=== PATIENT | female | born 1955 | race Asian ===

== ENCOUNTER 2017-10-23 22:54 | Inpatient (IN) | payer MEDICAID ==
[~2017-10-23] VITALS: Ht 165.1 cm; Wt 67.1 kg
[2017-10-23 23:19] LABS: APPEARANCE,URINE CLEAR; BILIRUBIN, URINE NEGATIVE (NEGATIVE); COLOR,URINE PALE YELLOW; GLUCOSE, URINE (UA) NEGATIVE (NEGATIVE); KETONES,URINE NEGATIVE (NEGATIVE); LEUKOCYTE ESTERASE ,URINE NEGATIVE (NEGATIVE); NITRITE,URINE NEGATIVE (NEGATIVE); PH,URINE 8 (4.5-8.0); PROTEIN,URINE NEGATIVE (NEGATIVE); UROBILINOGEN,URINE NORMAL MG/DL (0.0-1.0)
[2017-10-23 23:22] LABS: BASOPHILS % (AUTO) 1.6 % (0.0-2.0); HEMATOCRIT 45.7 % (37.0-47.0); HEMOGLOBIN 15.4 G/DL (12.0-16.0); LYMPHOCYTES % (AUTO) 48.3 % (20.0-45.0); MEAN CORPUSCULAR VOLUME 89 FL (80-99); MONOCYTES % (AUTO) 7.9 % (1.0-10.0); NEUTROPHILS % (AUTO) 40.2 % (45.0-75.0); PLATELET COUNT 300 K/UL (150-450); RED BLOOD COUNT 5.11 M/UL (4.20-5.40); RED CELL DISTRIBUTION WIDTH 10.6 % (11.6-14.8); WHITE BLOOD COUNT 7.2 K/UL (4.8-10.8)
[2017-10-23 23:27] LABS: ANION GAP 8 mmol/L (5-15); BLOOD UREA NITROGEN 19 mg/dL (7-18); CALCIUM 9.5 MG/DL (8.5-10.1); CARBON DIOXIDE 28 MMOL/L (21-32); CHLORIDE 105 MMOL/L (98-107); CREATININE 0.7 MG/DL (0.55-1.30); POTASSIUM 3.8 MMOL/L (3.5-5.1); SODIUM 141 MMOL/L (136-145)
[2017-10-24] VITALS (9 sets, daily range): BP systolic 105–175; BP diastolic 37–65
--- NOTE | 2017-10-24 00:05 | Emergency Room Report ---
History of Present Illness General Chief Complaint: Hypertension Source: Patient Present Illness HPI Is a 62-year-old [place] female with history of high blood pressure. She presents with chief complaint of high blood pressure and dizziness. She complained at the ceiling is spinning. Blood pressure at home was also elevated with systolic in the 200. She also has nausea vomiting. No fever or chills. No diarrhea. No abdominal pain. No hematuria. No chest pain. She did have an upper respiratory infection about 2 weeks ago. Allergies: Coded Allergies: No Known Allergies (Unverified , 10/23/17) Patient History Past Medical History: see triage record, old chart reviewed, HTN Past Surgical History: other Pertinent Family History: none Social History: Denies: smoking Last Menstrual Period: NA Now: No Immunizations: other Reviewed Nursing Documentation: PMH: Agreed, PSxH: Agreed Nursing Documentation-PMH Hx Hypertension: Yes Hx Diabetes: Yes Review of Systems Eye: Denies: eye pain, blurred vision ENT: Denies: ear pain, nose congestion, throat swelling Respiratory: Denies: cough, shortness of breath Cardiovascular: Denies: chest pain, palpitations Gastrointestinal: Denies: abdominal pain, diarrhea, nausea, vomiting Musculoskeletal: Denies: back pain, joint pain Skin: Denies: rash Neurological: Reports: dizziness, Denies: headache, numbness Endocrine: Denies: increased thirst, increased urine Hematologic/Lymphatic: Denies: easy bruising All Other Systems: negative except mentioned in HPI Physical Exam Vital Signs Date Time Temp Pulse Resp B/P (MAP) Pulse Ox O2 Delivery O2 Flow Rate FiO2 10/23/17 22:18 98.1 90 18 210/84 98 Room Air 98.1 vitals were high blood pressure Sp02 EP Interpretation: reviewed, normal General Appearance: well appearing, no apparent distress, alert Head: normocephalic, atraumatic Eyes: bilateral eye PERRL, bilateral eye EOMI ENT: hearing grossly normal, normal pharynx Neck: full range of motion, supple, no meningismus Respiratory: chest non-tender, lungs clear, normal breath sounds Cardiovascular #1: regular rate, rhythm, no murmur Gastrointestinal: normal bowel sounds, non tender, no mass, no organomegaly, no bruit, non-distended Musculoskeletal: back normal, gait/station normal, normal range of motion Psychiatric: mood/affect normal Skin: warm/dry Medical Decision Making Diagnostic Impression: Primary Impression: Hypertension Qualified Codes: I10 - Essential (primary) hypertension Additional Impressions: Palpitations Dizziness ACS (acute coronary syndrome) ER Course Patient presents with dizziness, vomiting, palpitation. Troponin is intermediate. This may be an atypical presentation of ACS. Patient denies any chest pain. Symptom improved. Will admit versus transfer for further workup. Pt approved for admission here under Dr. Cohen Lab Results Impression labs with intermediate trop EKG Diagnostic Results Rate: normal Rhythm: NSR ST Segments: no acute changes ASA given to the pt in ED: Yes Rhythm Strip Diag. Results Rhythm Strip Time: 02:50 EP Interpretation: yes Rate: 100 Rhythm: NSR, no PVC's, no ectopy Chest X-Ray Diagnostic Results Chest X-Ray Diagnostic Results : Chest X-Ray Ordered: Yes Indication: Chest Pain EP Interpretation: Yes Interpretation: no consolidation, no effusion, no pneumothorax, no acute cardiopulmonary disease Impression: No acute disease Electronically Signed by: Joe Barnes MD CT/MRI/US Diagnostic Results CT/MRI/US Diagnostic Results : Imaging Test Ordered: Ct head Impression CT head read by radiologist. Neg Last Vital Signs Date Time Temp Pulse Resp B/P (MAP) Pulse Ox O2 Delivery O2 Flow Rate FiO2 10/23/17 23:47 166/84 10/23/17 22:55 90 18 Room Air 10/23/17 22:18 98.1 98 98.1 Status: improved Disposition: ADMITTED INPATIENT Condition: Serious Scripts Unable to Obtain Active Prescriptions or Reported Meds JOE BARNES M.D. Oct 24, 2017 00:05
[2017-10-24] MEDS ORDERED: LORazepam Inj 2mg/ml 1ml IV ONE (01:00)
[2017-10-24] MEDS ORDERED: Acetaminophen 500mg (ES) tab ORAL ONE (01:45)
[2017-10-24] MEDS ORDERED: Aspirin Baby 81mg ORAL ONE (02:45)
[2017-10-24] MEDS ORDERED: Albuterol/Ipratropium 3ml neb HHN PRN (08:30)
[2017-10-24] MEDS ORDERED: Miralax 17gm pkt ORAL PRN (08:30)
[2017-10-24] MEDS ORDERED: Enalaprilat 2.5mg/2ml Inj IV PRN (08:30)
[2017-10-24] MEDS ORDERED: Ketorolac 30mg Inj IV PRN (08:30)
[2017-10-24] MEDS ORDERED: Nitroglycerin Subl 0.4mg tab SL PRN (08:30)
[2017-10-24] MEDS ORDERED: Morphine Sulfate 2mg/ml Inj IVP PRN (08:30)
[2017-10-24] MEDS ORDERED: dilTIAZem HCl 25mg/5ml Inj IV PRN (08:30)
--- NOTE | 2017-10-24 08:58 | Diagnostic Imaging Report ---
Indication: Shortness of breath Technique: XRAY Chest 1v Comparison: None Findings: Heart size is within normal limits. Atherosclerotic calcifications noted in the thoracic aorta. There is no focal airspace consolidation, pleural effusion or pneumothorax. No acute osseous abnormality. Impression: No radiographic evidence of acute cardiopulmonary disease.
--- NOTE | 2017-10-24 09:01 | Diagnostic Imaging Report ---
Indication: Dizziness Technique: Continuous helical CT scanning of the head was performed utilizing automated exposure control without intravenous contrast material. Axial and coronal reconstructions were obtained. Comparison: None CT dose: Total DLP 1478.13 mGycm; CTDI vol 70.38 mGy Findings: There is no acute intracranial hemorrhage, mass effect or cortical edema. The ventricles, cisterns and sulci are prominent consistent with atrophy. Periventricular hypoattenuation is seen, a nonspecific finding. Atherosclerotic calcifications noted in the cavernous portions of the bilateral internal carotid arteries. Visualized mastoid air cells and paranasal sinuses are unremarkable. No focal lesions of the bony calvarium or soft tissues of the scalp are seen. IMPRESSION: No evidence of acute intracranial hemorrhage, mass effect or cortical edema. MRI may be obtained for more sensitive evaluation as clinically indicated. Atrophy and nonspecific periventricular hypoattenuation suggestive of chronic ischemic microvascular changes. This corresponds with the statrad preliminary report. The CT scanner at [facility] is accredited by the [employer] and the scans are performed using protocols designed to limit radiation exposure to as low as reasonably achievable to attain images of sufficient resolution adequate for diagnostic evaluation.
[2017-10-24] MEDS ORDERED: METOPROLOL SUCC50 MG ORAL (09:51)
[2017-10-24] MEDS ORDERED: PREDNISONE10 MG ORAL (09:51)
[2017-10-24] MEDS ORDERED: CLOPIDOGREL75 MG ORAL (09:51)
[2017-10-24] MEDS ORDERED: SIMVASTATIN20 MG ORAL (09:51)
[2017-10-24] MEDS ORDERED: OMEPRAZOLE40 M1 ORAL (09:51)
[2017-10-24] MEDS: Aspirin Baby 81mg ORAL SCH (10:01)
[2017-10-24] MEDS: Heparin 5000 units/ml inj SUBQ SCH ×2 (10:03→22:18)
--- NOTE | 2017-10-24 12:41 | History and Physical ---
History of Present Illness General Date patient seen: Oct 24, 2017 Reason for Hospitalization: Hypertension Present Illness HPI 62-year-old [place] female with history of high blood pressure presented to ER with chief complaint of high blood pressure and dizziness. She complained that the ceiling is spinning. Blood pressure at home was also elevated with systolic in the 200. She also has nausea vomiting. No fever or chills. No diarrhea. No abdominal pain. No hematuria. No chest pain. She is admitted to telemetry for hypertensive emergency. Allergies: Coded Allergies: No Known Allergies (Unverified , 10/23/17) Medication History Scheduled Clopidogrel* (Clopidogrel*), 75 MG ORAL DAILY, (Reported) Metoprolol Succinate* (Metoprolol Succinate*), 50 MG ORAL DAILY, (Reported) Omeprazole (Omeprazole), 40 MG ORAL DAILY, (Reported) Prednisone* (Prednisone*), 10 MG ORAL DAILY, (Reported) Simvastatin (Zocor), 20 MG ORAL BEDTIME, (Reported) Patient History Healthcare decision maker Resuscitation status Full Code Advanced Directive on File No Past Medical/Surgical History Past Medical/Surgical History: (1) Hypertension Review of Systems All Other Systems: negative except mentioned in HPI Physical Exam General Appearance: WD/WN Lines, tubes and drains: peripheral HEENT: normocephalic, atraumatic Neck: non-tender, normal alignment Respiratory/Chest: chest wall non-tender, lungs clear Breasts: no masses Cardiovascular/Chest: normal peripheral pulses Abdomen: normal bowel sounds, non tender Genitourinary/Rectal: normal genital exam Skin Exam: normal pigmentation Neurologic: no motor/sensory deficits Last 24 Hour Vital Signs Date Time Temp Pulse Resp B/P (MAP) Pulse Ox O2 Delivery O2 Flow Rate FiO2 10/24/17 12:00 97.3 84 20 127/64 97 Room Air 97.3 10/24/17 08:00 98.0 85 18 105/60 97 Room Air 98.0 10/24/17 06:00 96.1 91 18 120/58 96 Room Air 96.1 10/24/17 05:46 87 10/24/17 05:10 97.9 93 18 114/56 97 Room Air 97.9 10/24/17 04:28 97.9 93 18 114/56 97 Room Air 97.9 10/24/17 02:59 104 19 136/53 97 Room Air 10/24/17 02:46 97.9 10/24/17 01:47 97.9 10/24/17 01:17 111 20 146/37 96 Room Air 10/24/17 00:38 155/53 10/24/17 00:04 97.9 102 18 175/63 99 Room Air 97.9 10/23/17 23:47 166/84 10/23/17 22:55 90 18 Room Air 10/23/17 22:18 98.1 90 18 210/84 98 Room Air 98.1 Intake and Output 10/23/17 10/24/17 19:00 07:00 Intake Total 2000 ml Balance 2000 ml Intake IV Total 2000 ml # Voids 4 Laboratory Tests Test 10/23/17 23:00 10/23/17 23:10 10/24/17 10:30 White Blood Count 7.2 K/UL (4.8-10.8) Red Blood Count 5.11 M/UL (4.20-5.40) Hemoglobin 15.4 G/DL (12.0-16.0) Hematocrit 45.7 % (37.0-47.0) Mean Corpuscular Volume 89 FL (80-99) Mean Corpuscular Hemoglobin 30.1 PG (27.0-31.0) Mean Corpuscular Hemoglobin Concent 33.7 G/DL (32.0-36.0) Red Cell Distribution Width 10.6 % (11.6-14.8) L Platelet Count 300 K/UL (150-450) Mean Platelet Volume 7.5 FL (6.5-10.1) Neutrophils (%) (Auto) 40.2 % (45.0-75.0) L Lymphocytes (%) (Auto) 48.3 % (20.0-45.0) H Monocytes (%) (Auto) 7.9 % (1.0-10.0) Eosinophils (%) (Auto) 2.0 % (0.0-3.0) Basophils (%) (Auto) 1.6 % (0.0-2.0) Sodium Level 141 MMOL/L (136-145) Potassium Level 3.8 MMOL/L (3.5-5.1) Chloride Level 105 MMOL/L (98-107) Carbon Dioxide Level 28 MMOL/L (21-32) Anion Gap 8 mmol/L (5-15) Blood Urea Nitrogen 19 mg/dL (7-18) H Creatinine 0.7 MG/DL (0.55-1.30) Estimat Glomerular Filtration Rate > 60 mL/min (>60) Glucose Level 112 MG/DL (74-106) H Calcium Level 9.5 MG/DL (8.5-10.1) Troponin I 0.044 ng/mL (0.000-0.056) 0.077 ng/mL (0.000-0.056) Urine Color Pale yellow Urine Appearance Clear Urine pH 8 (4.5-8.0) Urine Specific [place] 1.015 (1.005-1.035) Urine Protein Negative (NEGATIVE) Urine Glucose (UA) Negative (NEGATIVE) Urine Ketones Negative (NEGATIVE) Urine Occult Blood Negative (NEGATIVE) Urine Nitrite Negative (NEGATIVE) Urine Bilirubin Negative (NEGATIVE) Urine Urobilinogen Normal MG/DL (0.0-1.0) Urine Leukocyte Esterase Negative (NEGATIVE) Urine RBC 0-2 /HPF (0 - 2) Urine WBC 0-2 /HPF (0 - 2) Urine Squamous Epithelial Cells Occasional /LPF Urine Bacteria Occasional /HPF (NONE) Height (Feet): 5 Height (Inches): 5.00 Weight (Pounds): 148 Medications Current Medications Medications (Trade) Dose Ordered Sig/Jaydon Route PRN Reason Start Time Stop Time Status Last Admin Dose Admin Acetaminophen (Tylenol) 650 mg Q4H PRN ORAL FEVER (temp>100.5F) 10/24/17 08:30 11/23/17 08:29 Albuterol/ Ipratropium (Albuterol/ Ipratropium) 3 ml Q4H PRN HHN Shortness of Breath 10/24/17 08:30 10/29/17 08:29 Aspirin (ASA) 162 mg DAILY ORAL 10/25/17 09:00 11/24/17 08:59 10/24/17 10:01 Diltiazem HCl (Cardizem) 10 mg Q1H PRN IV heart rate more than 120, 10/24/17 08:30 11/23/17 08:29 Enalaprilat (Vasotec) 2.5 mg Q6H PRN IV sbp more than 160 10/24/17 08:30 11/23/17 08:29 Heparin Sodium (Porcine) (Heparin 5000 units/ml) 5,000 units EVERY 12 HOURS SUBQ 10/24/17 09:00 11/23/17 08:59 10/24/17 10:03 Ketorolac Tromethamine (Toradol 30mg) 30 mg Q6H PRN IV moderate pain ( 4-6) 10/24/17 08:30 10/29/17 08:29 Morphine Sulfate (Morphine Sulfate) 2 mg Q4H PRN IVP severe Pain (Pain Scale 7-10) 10/24/17 08:30 10/31/17 08:29 Nitroglycerin (Ntg) 0.4 mg Q5M PRN SL Prn Chest Pain 10/24/17 08:30 11/23/17 08:29 Ondansetron HCl (Zofran) 4 mg Q6H PRN IVP Nausea & Vomiting 10/24/17 08:30 11/23/17 08:29 Polyethylene Glycol (Miralax) 17 gm DAILYPRN PRN ORAL Constipation 10/24/17 08:30 11/23/17 08:29 10/24/17 12:20 Temazepam (Restoril) 15 mg HSPRN PRN ORAL Insomnia 10/24/17 08:30 10/31/17 08:29 Assessment/Plan Problem List: (1) ACS (acute coronary syndrome) ICD Codes: I24.9 - Acute ischemic heart disease, unspecified SNOMED: 952161562 (2) Hypertensive emergency ICD Codes: I16.1 - Hypertensive emergency SNOMED: 203151230433296 (3) Hypertension ICD Codes: I10 - Essential (primary) hypertension SNOMED: 02600047, [id number] Qualifiers: Qualified Codes: I10 - Essential (primary) hypertension Assessment/Plan serial ekg, troponin echo, monitor BP cardio to see Elysia Antunez MD Oct 24, 2017 12:41
[2017-10-24] MEDS: Pantoprazole Inj IVP SCH (13:41)
--- NOTE | 2017-10-24 14:23 | Cardiology Progress Note ---
Subjective Subjective [id number] Objective Last 24 Hour Vital Signs Date Time Temp Pulse Resp B/P (MAP) Pulse Ox O2 Delivery O2 Flow Rate FiO2 10/24/17 12:00 83 10/24/17 12:00 97.3 84 20 127/64 97 Room Air 97.3 10/24/17 08:00 98.0 85 18 105/60 97 Room Air 98.0 10/24/17 06:00 96.1 91 18 120/58 96 Room Air 96.1 10/24/17 05:46 87 10/24/17 05:10 97.9 93 18 114/56 97 Room Air 97.9 10/24/17 04:28 97.9 93 18 114/56 97 Room Air 97.9 10/24/17 02:59 104 19 136/53 97 Room Air 10/24/17 02:46 97.9 10/24/17 01:47 97.9 10/24/17 01:17 111 20 146/37 96 Room Air 10/24/17 00:38 155/53 10/24/17 00:04 97.9 102 18 175/63 99 Room Air 97.9 10/23/17 23:47 166/84 10/23/17 22:55 90 18 Room Air 10/23/17 22:18 98.1 90 18 210/84 98 Room Air 98.1 Intake and Output 10/23/17 10/24/17 19:00 07:00 Intake Total 2000 ml Balance 2000 ml IV Total 2000 ml # Voids 4 Laboratory Tests Test 10/23/17 23:00 10/23/17 23:10 10/24/17 10:30 White Blood Count 7.2 K/UL (4.8-10.8) Red Blood Count 5.11 M/UL (4.20-5.40) Hemoglobin 15.4 G/DL (12.0-16.0) Hematocrit 45.7 % (37.0-47.0) Mean Corpuscular Volume 89 FL (80-99) Mean Corpuscular Hemoglobin 30.1 PG (27.0-31.0) Mean Corpuscular Hemoglobin Concent 33.7 G/DL (32.0-36.0) Red Cell Distribution Width 10.6 % (11.6-14.8) L Platelet Count 300 K/UL (150-450) Mean Platelet Volume 7.5 FL (6.5-10.1) Neutrophils (%) (Auto) 40.2 % (45.0-75.0) L Lymphocytes (%) (Auto) 48.3 % (20.0-45.0) H Monocytes (%) (Auto) 7.9 % (1.0-10.0) Eosinophils (%) (Auto) 2.0 % (0.0-3.0) Basophils (%) (Auto) 1.6 % (0.0-2.0) Sodium Level 141 MMOL/L (136-145) Potassium Level 3.8 MMOL/L (3.5-5.1) Chloride Level 105 MMOL/L (98-107) Carbon Dioxide Level 28 MMOL/L (21-32) Anion Gap 8 mmol/L (5-15) Blood Urea Nitrogen 19 mg/dL (7-18) H Creatinine 0.7 MG/DL (0.55-1.30) Estimat Glomerular Filtration Rate > 60 mL/min (>60) Glucose Level 112 MG/DL (74-106) H Calcium Level 9.5 MG/DL (8.5-10.1) Troponin I 0.044 ng/mL (0.000-0.056) 0.077 ng/mL (0.000-0.056) Urine Color Pale yellow Urine Appearance Clear Urine pH 8 (4.5-8.0) Urine Specific [place] 1.015 (1.005-1.035) Urine Protein Negative (NEGATIVE) Urine Glucose (UA) Negative (NEGATIVE) Urine Ketones Negative (NEGATIVE) Urine Occult Blood Negative (NEGATIVE) Urine Nitrite Negative (NEGATIVE) Urine Bilirubin Negative (NEGATIVE) Urine Urobilinogen Normal MG/DL (0.0-1.0) Urine Leukocyte Esterase Negative (NEGATIVE) Urine RBC 0-2 /HPF (0 - 2) Urine WBC 0-2 /HPF (0 - 2) Urine Squamous Epithelial Cells Occasional /LPF Urine Bacteria Occasional /HPF (NONE) FARRAH MARTINS 18, 2018 14:23
[2017-10-24] MEDS: Docusate 100mg cap ORAL SCH (18:02)
[2017-10-24] MEDS: Meclizine 25mg tab ORAL SCH (18:02)
[2017-10-24] MEDS: Metoprolol Succinate XL 50mg tab ORAL SCH (18:02)
--- NOTE | 2017-10-24 21:15 | Consultation ---
DATE OF CONSULTATION: 10/24/2017 CARDIOLOGY CONSULTATION IDENTIFYING DATA: This is a 62-year-old Tam[place] female. REASON FOR ADMISSION: Dizziness and elevated blood pressure. HISTORY OF PRESENT ILLNESS: Taken from the patient. The patient has history of hypertension and yesterday after dinner about couple hours after dinner she felt very nauseated. She checked her blood pressure, it was 210/100 and felt very nauseated, she laid down and she felt slightly better but not entirely better. She also was having headaches. PAST MEDICAL HISTORY: Significant for as I said hypertension only. She does not have diabetes, does not have coronary artery disease, she has hyperlipidemia. There is no chest pain. No shortness of breath. Now she feels a little better. She has arthritis. PAST SURGICAL HISTORY: Negative. MEDICATIONS: At home include metoprolol, clopidogrel, omeprazole, simvastatin. HABITS: No history of drinking, smoking, drug abuse. SOCIAL HISTORY: Lives at home independent. REVIEW OF SYSTEMS: Review of systems essentially was negative. Cardiac-oliveira review of system was done in detailed and it is negative. PHYSICAL EXAMINATION: GENERAL: Reveals middle-aged female, appears to be not in acute distress. VITAL SIGNS: Blood pressure 120/60, heart rate 90, temperature 96.1, oxygen saturation 96%. HEENT: PERRLA. EOMI. NECK: Supple. Jugular pressure is normal. No carotid bruit. No thyromegaly. LUNGS: Clear to auscultation. HEART: Regular. PMI in the sixth intercostal space in midclavicular line. Accentuated A2. BREASTS: Not done. ABDOMEN: Soft and nontender. No masses. No rebound. No guarding. EXTREMITIES: Lower extremities, no edema. Distal pulses palpable. NEUROLOGIC: Neurologically she appears to be unremarkable. LABORATORY AND DIAGNOSTIC DATA: EKG unremarkable. Labs all reviewed. Troponin 0.44. Glucose 112. Labs are unremarkable. IMPRESSION AND RECOMMENDATION: The patient sounds like she had benign positional vertigo versus orthostatic dizziness, postprandial dizziness with subsequent elevated blood pressure. However I do not see any evidence of acute coronary syndrome. Troponin could be false positive. I would couple of ECGs and maybe she is going to have stress test as outpatient but otherwise no significant recommendations. I added meclizine to her medical regimen. Thank you for the consultation. Lori Dee M.D. DR: Angela JOB#: [id number] CC:
[2017-10-25] VITALS: BP 130/52
[2017-10-25 04:00] VITALS: BP 126/65
[2017-10-25 08:00] VITALS: BP 138/71
[2017-10-25 08:04] LABS: HEMOGLOBIN 13.7 G/DL (12.0-16.0); MEAN CORPUSCULAR VOLUME 91 FL (80-99); PLATELET COUNT 280 K/UL (150-450); RED BLOOD COUNT 4.49 M/UL (4.20-5.40); RED CELL DISTRIBUTION WIDTH 10.8 % (11.6-14.8); WHITE BLOOD COUNT 5.6 K/UL (4.8-10.8)
[2017-10-25 08:53] LABS: CHOLESTEROL 183 MG/DL (< 200); HDL CHOLESTEROL 37 MG/DL (40-60); TRIGLYCERIDES 156 MG/DL (30-150)
[2017-10-25] MEDS: Meclizine 25mg tab ORAL SCH (09:03)
[2017-10-25] MEDS: Docusate 100mg cap ORAL SCH ×2 (09:04→14:00)
[2017-10-25] MEDS: Metoprolol Succinate XL 50mg tab ORAL SCH (09:04)
[2017-10-25] MEDS: Heparin 5000 units/ml inj SUBQ SCH (09:05)
[2017-10-25] MEDS: Pantoprazole Inj IVP SCH (09:05)
[2017-10-25] MEDS: Aspirin Baby 81mg ORAL SCH (09:15)
[2017-10-25 12:00] VITALS: BP 124/61
[2017-10-25] MEDS ORDERED: MECLIZINE HCL25 MG ORAL (12:50)
[2017-10-25] MEDS ORDERED: ASPIRIN81 MG ORAL (12:50)
--- NOTE | 2017-10-25 12:55 | Neurology Progress Note ---
Objective Physical Exam Last Vital Signs Date Time Temp Pulse Resp B/P (MAP) Pulse Ox O2 Delivery O2 Flow Rate FiO2 10/25/17 09:04 75 138/71 10/25/17 08:00 97.9 18 98 Room Air 97.9 10/25/17 07:28 21 Laboratory Tests Test 10/25/17 06:40 White Blood Count 5.6 K/UL (4.8-10.8) Red Blood Count 4.49 M/UL (4.20-5.40) Hemoglobin 13.7 G/DL (12.0-16.0) Hematocrit 41.0 % (37.0-47.0) Mean Corpuscular Volume 91 FL (80-99) Mean Corpuscular Hemoglobin 30.6 PG (27.0-31.0) Mean Corpuscular Hemoglobin Concent 33.5 G/DL (32.0-36.0) Red Cell Distribution Width 10.8 % (11.6-14.8) L Platelet Count 280 K/UL (150-450) Mean Platelet Volume 7.5 FL (6.5-10.1) Neutrophils (%) (Auto) % (45.0-75.0) Lymphocytes (%) (Auto) % (20.0-45.0) Monocytes (%) (Auto) % (1.0-10.0) Eosinophils (%) (Auto) % (0.0-3.0) Basophils (%) (Auto) % (0.0-2.0) Differential Total Cells Counted 100 Neutrophils % (Manual) 35 % (45-75) L Lymphocytes % (Manual) 53 % (20-45) H Monocytes % (Manual) 9 % (1-10) Eosinophils % (Manual) 3 % (0-3) Basophils % (Manual) 0 % (0-2) Band Neutrophils 0 % (0-8) Platelet Estimate Adequate Platelet Morphology Normal Red Blood Cell Morphology Normal Prothrombin Time 10.0 SEC (9.30-11.50) Prothromb Time International Ratio 1.0 (0.9-1.1) Activated Partial Thromboplast Time 27 SEC (23-33) Troponin I 0.099 ng/mL (0.000-0.056) C-Reactive Protein, Quantitative < 0.4 mg/dL (0.00-0.90) Triglycerides Level 156 MG/DL (30-150) H Cholesterol Level 183 MG/DL (< 200) LDL Cholesterol 127 mg/dL (<100) H HDL Cholesterol 37 MG/DL (40-60) L Cholesterol/HDL Ratio 4.9 (3.3-4.4) H Thyroid Stimulating Hormone (TSH) 0.009 uiU/mL (0.358-3.740) Impression/Recommendations Recommendations #[id number] DOLORES JONAS Oct 25, 2017 12:55
--- NOTE | 2017-10-25 18:45 | Consultation ---
DATE OF CONSULTATION: 10/25/2017 NEUROLOGICAL CONSULTATION CONSULTING PHYSICIAN: González Buck M.D. REQUESTING PHYSICIAN: Elysia Antunez M.D. HISTORY OF PRESENT ILLNESS: The patient is a 62-year-old female, seen in neurological consultation to evaluate new onset of vertigo. The patient informed me that on the day of admission, around 7 p.m. she was having dinner feeling fairly well, she took her medication but then she had a very sudden onset of severe vertigo, accompanied by nausea, instability of gait. She went to bed. Her blood pressure went up to around 200 systolic. She continued to have vertigo "spinning sensation" and called paramedics. She was brought to emergency room complaining of nausea and vomiting but there was no other associated symptomatology. No chest pain. No palpitation. Her blood pressure was 210/84. She was afebrile. Stat CT of the brain was obtained, this revealed no acute abnormalities. No midline shift. Chest x-ray, no acute cardiopulmonary disease. EKG normal sinus rhythm, no PVC, no ectopies. Since admission till present, she has a gradual improvement today, no further dizziness. The patient recalled that in the last week or two, she had some flu-like symptoms which resolved. PAST MEDICAL HISTORY: History of history of cardiac arrhythmia x3, angiographies. She has history of hypertension and degenerative joint disease. MEDICATIONS: Treatment prior to admission including Plavix, omeprazole, metoprolol, simvastatin. SOCIAL HISTORY: No alcohol. No drug abuse. The patient lives alone. REVIEW OF SYMPTOMS: A 12-point review of symptom was negative. No chest pain. No palpitations. No respiratory problems. No abdominal pain or discomfort. No urine or bowel incontinence. No headache. Currently no dizziness. FAMILY HISTORY: Noncontributory. PHYSICAL EXAMINATION: GENERAL: A well-developed, well-nourished, pleasant lady, not in acute distress. VITAL SIGNS: Blood pressure 138/86, respirations 18. HEENT: Head is normocephalic. No evidence of trauma. MUSCULOSKELETAL: Unremarkable with no deformities. Peripheral pulses 1+ symmetric. MENTAL STATUS: She is alert and oriented x3 with no evidence of aphasia or apraxia. Cognition is normal. CRANIAL NERVE II: Pupils both responding to light and accommodation. Extraocular movements intact. No nystagmus. CRANIAL NERVE V: Normal corneal responses. CRANIAL NERVE VII: No facial asymmetry. CRANIAL NERVE VIII: Normal hearing. CRANIAL NERVE IX THROUGH XII: Within normal limits. MOTOR EXAMINATION: Normal muscle tone and strength 5/5 in all extremities. No involuntary movement. Deep tendon reflexes 1+ symmetric with downgoing toes on both sides. SENSORY EXAMINATION: Normal to pinprick light touch. GAIT: Stable. IMPRESSION: 1. Acute benign positional paroxysmal vertigo. 2. Hypertension. DISCUSSION: 1. The patient has normal nonfocal neurological examination. Description of event appears typical for a benign positional vertigo. 2. Symptoms spontaneously resolved Currently, she is neurologically stable. For any recurrent dizziness, may use meclizine 12.5 mg t.i.d. as needed. Thank you for allowing me to see this interesting patient in neurological consultation. González Buck M.D. DR: Lena JOB#: [id number] CC:
--- NOTE | 2017-10-26 15:49 | Discharge Summary ---
Discharge Summary Hospital Course Date of Admission Oct 24, 2017 at 03:06 Date of Discharge Oct 25, 2017 at 14:55 Admitting Diagnosis Acure coronary syndrome HPI Winston Harvey is a 62 year old female who was admitted on Oct 24, 2017 at 03:06 for Acute Coornary Syndrome Hospital Course dc summary #[id number] Discharge Condition Upon Discharge: stable Discharge Disposition Patient was discharged to Home Discharge Diagnoses: Discharge Instructions Discharge Instructions Special Instructions I have been assigned to complete a D/C Summary on this account. I was not involved in the patient management Helga Waldrop NP ([place]) Oct 26, 2017 15:49
--- NOTE | 2017-10-26 17:46 | Cardiology Report ---
APPROVED REPORT EXAM: Two-dimensional and M-mode echocardiogram with Doppler and color Doppler. INDICATION Left Ventricular Function M-Mode DIMENSIONS IVSd1.3 (0.7-1.1cm)Left Atrium (MM)3.6 (1.6-4.0cm) LVDd4.3 (3.5-5.6cm)Aortic Root2.8 (2.0-3.7cm) PWd0.9 (0.7-1.1cm)Aortic Cusp Exc.1.7 (1.5-2.0cm) LVDs1.8 (2.5-4.0cm) PWs1.7 cm Normal left ventricular chamber size, systolic function and wall motion. Left ventricular ejection fraction estimated to be 70-75 %. Mild left ventricular hypertrophy. No evidence of pericardial effusion. All other cardiac chamber sizes are within normal limits. Focal aortic valve sclerosis with adequate cusp excursion. Thickened mitral valve leaflets with normal excursion. Mild mitral annulus and aortic root calcification. Normal pulmonic valve structure. Normal tricuspid valve structure. IVC is normal in size with physiological collapse. A color flow and spectral Doppler study was performed and revealed: No aortic insufficiency. Mild mitral regurgitation. Mitral diastolic velocities suggest mild left ventricular diastolic dysfunction (Grade I). Trace tricuspid regurgitation. Tricuspid systolic velocities suggests peak right ventricular systolic pressure of 21 mmHg. Trace pulmonic regurgitation present.
--- NOTE | 2017-10-26 18:42 | Cardiology Report ---
APPROVED REPORT EKG Measurement Heart [id number] FL [id number] Sinus tachycardia Otherwise normal ECG
--- NOTE | 2017-10-27 01:00 | Discharge Summary 2 SIG ---
DATE OF ADMISSION: 10/24/2017 DATE OF DISCHARGE: 10/25/2017 REASON FOR ADMISSION: 62-year-old female with past medical history significant for hypertension, degenerative joint disease, cardiac arrhythmia, angiogram, presented to the emergency department with complaints of elevated blood pressure, dizziness, nausea and vomiting. Upon evaluation, blood pressure was 210/84. Initial troponin was negative. The patient reported feeling of spinning. She also reported palpitations. Laboratory workup revealed stable electrolytes. First troponin negative- 0.044 and second troponin elevated - 0.077. Coagulation profile was stable. No leukocytosis. Stable hemoglobin and hematocrit. Urinalysis, no evidence of UTI. CT of the head revealed no acute intracranial pathology. Chest x-ray revealed no acute cardiopulmonary pathology. EKG revealed normal sinus rhythm. No acute ischemic changes. The patient admitted to telemetry floor with diagnoses of abnormal troponin, hypertensive emergency, dizziness and palpitations. HOSPITAL COURSE: The patient admitted. Neurology and Cardiology consults were requested. According to neurologist, the patient had normal nonfocal neurological exam. The patient's symptoms, which spontaneously resolved pointed to acute benign positional vertigo. At this point, she was neurologically stable. For any recurrent dizziness, she may use meclizine 12.5 mg t.i.d as needed. Director Of Engineering has seen and evaluated the patient. Echocardiogram revealed preserved ejection fraction of 55%, right ventricular systolic pressure of 21 and mild left ventricular hypertrophy. According to retail salesperson, troponin was minimally elevate . Echocardiogram with preserved ejection fraction. There was no evidence of acute coronary syndrome per retail salesperson. She recommended to have a stress test as an outpatient and cleared the patient for discharge. Blood pressure was subsequently controlled with beta-john. The patient started on aspirin. Pain management provided. Bowel regimen instituted. DVT prophylaxis provided. Supplemental oxygen and pulmonary toilet were on board as needed. Bowel regimen instituted. The patient was stable for discharge. Due to the rapid and unexpected improvement in patient's condition, the patient was discharged in one day. FINAL DIAGNOSES: 1. Acute benign positional vertigo. 2. Hypertensive emergency. 3. Hypertension. 4. Abnormal troponin. DISCHARGE MEDICATIONS: See medication reconciliation list. DISCHARGE INSTRUCTIONS: The patient discharged home. Follow up with primary care provider as outpatient and Cardiology for outpatient stress test. Elysia Antunez M.D. I have been assigned to dictate discharge summary on this account and I was not involved in the patient's management. Helga TobinMontefiore Medical Centerboris NLuis Enrique DR: BRIAN JOB#: [id number] CC: MARTY
== END 2017-10-25 14:55 | disposition home or self-care (01) | DRG 199 ==
LOC: EDBD 22:54 → EMR 23:30 → 2E 10-24 03:06 → EDBEDREQ 10-24 03:29
DX: I16.1 Hypertensive emergency (principal); H81.10 Benign paroxysmal vertigo, unspecified ear; M19.90 Unspecified osteoarthritis, unspecified site; R74.8 Abnormal levels of other serum enzymes; Z79.02 Long term (current) use of antithrombotics/antiplatelets
CPT/HCPCS: 36415; 70450; 71045; 80048; 80061; 81001; 82962; 84443; 84484; 85007; 85025; 85610; 85730; 86140; 93005; 93306; 94664; 99285; J2405

== ENCOUNTER 2019-09-02 09:08 | Inpatient (IN) | payer MEDICAID, OTHER ==
[~2019-09-02] VITALS: Ht 165.1 cm; Wt 72.3 kg
[~2019-09-02 09:08] MED LIST: ASPIRIN81 MG ORAL; CLOPIDOGREL75 MG ORAL; MECLIZINE HCL25 MG ORAL; METOPROLOL SUCC50 MG ORAL; OMEPRAZOLE40 M1 ORAL; PREDNISONE10 MG ORAL; SIMVASTATIN20 MG ORAL
[2019-09-02 09:31] VITALS: BP 152/75
--- NOTE | 2019-09-02 09:36 | Emergency Room Report ---
History of Present Illness General Chief Complaint: Abdominal Pain Source: Patient, Medical Record Present Illness HPI Patient is a 64-year-old female presents after increased left-sided lower abdominal pain. Patient had sudden onset of symptoms approximate 11 PM last night. Associated nausea. Subjective fever. Denies any hematuria. She had prior history of polyps to her intestine. No prior abdominal surgeries. Prior history of cardiac ablation. She denies any bloody stools or diarrhea but has had some slight increased looseness of stool. Allergies: Coded Allergies: No Known Allergies (Unverified , 10/23/17) Patient History Past Medical History: see triage record Last Menstrual Period: N/A Now: No : 1 Para: 2 Reviewed Nursing Documentation: PMH: Agreed; PSxH: Agreed Nursing Documentation-PMH Hx Cardiac Problems: Yes - High cholesterol, arrhythmia Hx Hypertension: Yes Hx Diabetes: No Hx Cancer: No Hx Gastrointestinal Problems: Yes - Acid Reflux Hx Neurological Problems: No Review of Systems All Other Systems: negative except mentioned in HPI Physical Exam Vital Signs Date Time Temp Pulse Resp B/P (MAP) Pulse Ox O2 Delivery O2 Flow Rate FiO2 09/02/19 09:15 98.1 74 18 152/75 (100) 97 Room Air Sp02 EP Interpretation: reviewed, normal General Appearance: normal inspection, alert, mild distress Head: atraumatic ENT: normal ENT inspection, hearing grossly normal, normal voice Neck: normal inspection, full range of motion, supple, no bony tend Respiratory: normal inspection, lungs clear, normal breath sounds, no respiratory distress, no retraction, no wheezing Cardiovascular #1: regular rate, rhythm, no edema Gastrointestinal: normal inspection, normal bowel sounds, non tender, soft, no guarding, no hernia Genitourinary: no CVA tenderness Musculoskeletal: normal inspection, back normal, normal range of motion Neurologic: alert, motor strength/tone normal, cloth wire weaver III-XII nml as tested, oriented x3, responsive, speech normal, normal inspection Psychiatric: normal inspection, judgement/insight normal, mood/affect normal Skin: no rash Medical Decision Making Diagnostic Impression: Primary Impression: Abdominal pain Additional Impression: Diverticulitis ER Course Patient presented for left-sided abdominal pain. Differential diagnosis include was not limited to bowel obstruction, kidney stone, diverticulitis, ovarian torsion among others. Because of complexity of patient's case laboratory tests and imaging studies were ordered.CT imaging showed some evidence of left lower abdominal under distention and thickening with possible colitis. Patient is noted to have persistent pain after medications. Dr. Lobo Quesada was contacted for inpatient management due to panel physician Laboratory Tests Test 09/03/19 05:52 09/04/19 04:30 White Blood Count 9.0 K/UL (4.8-10.8) Red Blood Count 4.41 M/UL (4.20-5.40) Hemoglobin 13.8 G/DL (12.0-16.0) Hematocrit 40.1 % (37.0-47.0) Mean Corpuscular Volume 91 FL (80-99) Mean Corpuscular Hemoglobin 31.2 PG (27.0-31.0) H Mean Corpuscular Hemoglobin Concent 34.3 G/DL (32.0-36.0) Red Cell Distribution Width 10.9 % (11.6-14.8) L Platelet Count 296 K/UL (150-450) Mean Platelet Volume 6.5 FL (6.5-10.1) Neutrophils (%) (Auto) 66.8 % (45.0-75.0) Lymphocytes (%) (Auto) 25.4 % (20.0-45.0) Monocytes (%) (Auto) 5.6 % (1.0-10.0) Eosinophils (%) (Auto) 1.2 % (0.0-3.0) Basophils (%) (Auto) 0.9 % (0.0-2.0) Hemoglobin A1c 5.6 % (4.3-6.0) Magnesium Level 2.2 MG/DL (1.8-2.4) Triglycerides Level 208 MG/DL (30-150) H Cholesterol Level 221 MG/DL (< 200) H LDL Cholesterol 137 mg/dL (<100) H HDL Cholesterol 37 MG/DL (40-60) L Cholesterol/HDL Ratio 6.0 (3.3-4.4) H Thyroid Stimulating Hormone (TSH) 2.271 uiU/mL (0.358-3.740) Stool Occult Blood Negative (NEGATIVE) Sodium Level 142 MMOL/L (136-145) Potassium Level 3.4 MMOL/L (3.5-5.1) L Chloride Level 108 MMOL/L (98-107) H Carbon Dioxide Level 26 MMOL/L (21-32) Anion Gap 8 mmol/L (5-15) Blood Urea Nitrogen 10 mg/dL (7-18) Creatinine 0.8 MG/DL (0.55-1.30) Estimate Glomerular Filtration Rate > 60 mL/min (>60) Glucose Level 96 MG/DL (74-106) Calcium Level 8.3 MG/DL (8.5-10.1) L Total Bilirubin 0.5 MG/DL (0.2-1.0) Aspartate Amino Transferase (AST) 25 U/L (15-37) Alanine Aminotransferase (ALT) 35 U/L (12-78) Alkaline Phosphatase 73 U/L (46-116) Total Protein 7.5 G/DL (6.4-8.2) Albumin 3.6 G/DL (3.4-5.0) Globulin 3.9 g/dL Albumin/Globulin Ratio 0.9 (1.0-2.7) L Last Vital Signs Date Time Temp Pulse Resp B/P (MAP) Pulse Ox O2 Delivery O2 Flow Rate FiO2 09/02/19 09:31 74 18 Room Air 09/02/19 09:31 98.1 152/75 97 Status: unchanged Disposition: ADMITTED INPATIENT Condition: Serious Sloan Tucker MD Sep 02, 2019 09:35
[2019-09-02] MEDS ORDERED: Morphine Sulfate 2mg/ml Inj(IV/IM USE ONLY) IVP ONE ×2 (09:45→12:00)
[2019-09-02 10:01] LABS: BASOPHILS % (AUTO) 2.1 % (0.0-2.0); EOSINOPHILS % (AUTO) 1.3 % (0.0-3.0); HEMATOCRIT 46.3 % (37.0-47.0); LYMPHOCYTES % (AUTO) 42.4 % (20.0-45.0); MEAN CORPUSCULAR VOLUME 90 FL (80-99); NEUTROPHILS % (AUTO) 49.2 % (45.0-75.0); PLATELET COUNT 344 K/UL (150-450); RED BLOOD COUNT 5.13 M/UL (4.20-5.40); RED CELL DISTRIBUTION WIDTH 10.6 % (11.6-14.8); WHITE BLOOD COUNT 7.5 K/UL (4.8-10.8)
[2019-09-02 10:05] LABS: APPEARANCE,URINE CLEAR; BILIRUBIN, URINE NEGATIVE (NEGATIVE); COLOR,URINE PALE YELLOW; GLUCOSE, URINE (UA) NEGATIVE (NEGATIVE); KETONES,URINE NEGATIVE (NEGATIVE); LEUKOCYTE ESTERASE ,URINE NEGATIVE (NEGATIVE); NITRITE,URINE NEGATIVE (NEGATIVE); PH,URINE 5 (4.5-8.0); PROTEIN,URINE 1+ (NEGATIVE); UROBILINOGEN,URINE NORMAL MG/DL (0.0-1.0)
[2019-09-02 10:07] LABS: INR 0.9 (0.9-1.1)
[2019-09-02 10:32] LABS: ANION GAP 10 mmol/L (5-15); BLOOD UREA NITROGEN 14 mg/dL (7-18); CALCIUM 9.2 MG/DL (8.5-10.1); CARBON DIOXIDE 26 MMOL/L (21-32); CHLORIDE 106 MMOL/L (98-107); CREATININE 0.7 MG/DL (0.55-1.30); POTASSIUM 4.3 MMOL/L (3.5-5.1); SODIUM 142 MMOL/L (136-145)
--- NOTE | 2019-09-02 10:32 | Diagnostic Imaging Report ---
EXAM: CT Abdomen and Pelvis Without Intravenous Contrast CLINICAL HISTORY: ABD PAIN TECHNIQUE: Axial computed tomography images of the abdomen and pelvis without intravenous contrast. Sagittal and coronal reformatted images were created and reviewed. CTDI is 21.80 mGy and DLP is 1324.40 mGy-cm. One or more of the following dose reduction techniques were used: automated exposure control, adjustment of the mA and/or kV according to patient size, use of iterative reconstruction technique. COMPARISON: No relevant prior studies available. FINDINGS: Lung bases: Incidental note of a 7 mm thin-walled pulmonary cyst in the left lower lobe (series 3 image 6). The lung bases are otherwise clear. ABDOMEN: Liver: Scattered punctate calcified granulomas in the liver, suggesting prior granulomatous disease. Gallbladder and bile ducts: Cholelithiasis with a subcentimeter stone in the gallbladder neck. No gallbladder wall thickening or adjacent inflammatory stranding. No biliary ductal dilatation. Pancreas: Unremarkable. No ductal dilation. Spleen: Unremarkable. No splenomegaly. Adrenals: Unremarkable. No mass. Kidneys and ureters: Unremarkable. No obstructing stones. No hydronephrosis. Stomach and bowel: Mild wall thickening of the descending and sigmoid colon. Remainder of the colon appears unremarkable. No abnormally distended loops of small bowel. GE junction and stomach appear unremarkable. PELVIS: Appendix: The appendix appears normal. Bladder: Unremarkable. No stones. Reproductive: The uterus and ovaries have an unremarkable noncontrast appearance. ABDOMEN and PELVIS: Intraperitoneal space: Unremarkable. No free air. No significant fluid collection. Bones/joints: Mild multilevel degenerative disc space loss and mild marginal endplate osteophytes throughout the visualized spine. No acute fracture. No dislocation. Soft tissues: Unremarkable. Vasculature: Atherosclerosis throughout the abdominal aorta and its proximal branches. No abdominal aortic aneurysm. Lymph nodes: Unremarkable. No enlarged lymph nodes. IMPRESSION: 1. Mild wall thickening of the descending and sigmoid colon. This is most likely related to underdistention although cannot exclude a mild colitis. No adjacent inflammatory changes, free air, or fluid collections. 2. Cholelithiasis with a subcentimeter stone in the gallbladder neck. No gallbladder wall thickening or adjacent inflammatory stranding. No biliary ductal dilatation. 3. Scattered punctate calcified granulomas in the liver, suggesting prior granulomatous disease.
[2019-09-02 10:39] LABS: ALANINE AMINOTRANSFERASE 43 U/L (12-78); ALBUMIN 4.3 G/DL (3.4-5.0); ALKALINE PHOSPHATASE 87 U/L (46-116); ASPARTATE AMINO TRANSFERASE 24 U/L (15-37); BILIRUBIN,TOTAL 0.4 MG/DL (0.2-1.0)
[2019-09-02] MEDS ORDERED: Ketorolac 30mg Inj IV ONE (11:15)
[2019-09-02] MEDS ORDERED: NORCO 5-325 TA1 EACH ORAL (11:43)
[2019-09-02] MEDS ORDERED: LEVOFLOXACIN500 MG ORAL (11:43)
[2019-09-02] MEDS ORDERED: FLAGYL500 MG ORAL (11:43)
[2019-09-02] MEDS ORDERED: AMLODIPINE BESYL5 MG ORAL (13:38)
[2019-09-02] MEDS ORDERED: Morphine Sulfate 4mg/ml Inj (IV USE ONLY) IVP PRN (17:30)
[2019-09-02] MEDS ORDERED: Piperacillin/Tazobactam 2.25 GM in D5W 55 ML IVPB SCH (17:30)
[2019-09-02] MEDS ORDERED: Milk of Magnesia 30ml Ud ORAL PRN (17:30)
[2019-09-02] MEDS ORDERED: Morphine Sulfate 2mg/ml Inj(IV/IM USE ONLY) IVP PRN (17:30)
--- NOTE | 2019-09-02 17:35 | History & Physical ---
History and Physical History & Physicial HP dictated # [id number] Lobo Quesada MD Sep 02, 2019 17:35
[2019-09-02] MEDS: Metoprolol Succinate XL 50mg tab ORAL SCH (18:28)
[2019-09-02] MEDS: D5 1/2NS 1,000 ML IV SCH (19:16)
[2019-09-02 20:00] VITALS: BP 135/66
[2019-09-02] MEDS: Zoysn 3.37gm in NS 100ML IVPB SCH (20:37)
--- NOTE | 2019-09-02 20:45 | History and Physical Report ---
DATE OF ADMISSION: 09/02/2019 CHIEF COMPLAINT: Abdominal pain. HISTORY OF PRESENT ILLNESS: The patient is a 64-year-old [place] female, who started having left lower quadrant abdominal pain about 11 p.m. last night. There was no associated nausea, vomiting; the patient's pain continued basically constantly. She came to the emergency room and CT scan showed gallstones as well as possible colitis and she was admitted for further care. PAST MEDICAL HISTORY: History of hypertension, hyperlipidemia, gastroesophageal reflux disease. MEDICATIONS: Reviewed in EMR. SOCIAL HISTORY: The patient lives by herself. No history of smoking or alcohol abuse. ALLERGIES: No known drug allergies. REVIEW OF SYSTEMS: As above. PHYSICAL EXAMINATION: GENERAL: The patient is a 64-year-old female, in no acute distress. VITAL SIGNS: Blood pressure 132/75, pulse 74, respirations 18, and temperature 98.1. HEENT: [place] conjunctivae. Anicteric sclerae. NECK: Supple. LUNGS: Clear to auscultation . HEART: S1 and S2 without murmurs or rubs. ABDOMEN: Soft. Left lower quadrant abdominal tenderness. EXTREMITIES: No cyanosis or edema. LABORATORY FINDINGS: CBC shows WBC of 7500, hematocrit 46, hemoglobin 16.0, platelet is 344,000. Chemistry panel shows a sodium of 142, potassium 4.3, chloride 106, CO2 26, BUN 14, creatinine 0.7, blood sugar is 117, calcium is 9.2. UA shows 20 to 30 rbc's per high-power field, 1+ protein. CT scan of abdomen and pelvis showed mild wall thickening of descending and sigmoid colon. This is mostly related to under distention although I cannot exclude a mild colitis, no adjacent inflammatory changes, free air or fluid collections. There is cholelithiasis with subcentimeter stone in the gallbladder neck, no gallbladder wall thickening or adjacent inflammatory stranding. No biliary ductal dilatation. Finally, there is a scattered punctate calcified granulomas in the liver suggesting prior granulomatous disease. ASSESSMENT: This is a 64-year-old [place] female, who was admitted with left lower abdominal pain. She has gallstones which does not correlate with the area of pain. There is also possibility of colitis. The patient has had constant pain. Diverticulitis needs to be ruled out. PLAN: The patient will be on IV antibiotics, IV fluids, NPO. GI consultation will be obtained as well as surgical consultation. The pain medication was prescribed. Labs will be followed. Further adjustment will be made in the patient's regimen. Lobo Quesada M.D. DR: Elvia JOB#: [id number] CC:
[2019-09-03] VITALS: BP 135/66
[2019-09-03 03:58] VITALS: BP 128/69
[2019-09-03] MEDS: D5 1/2NS 1,000 ML IV SCH ×2 (04:24→12:22)
[2019-09-03] MEDS: Zoysn 3.37gm in NS 100ML IVPB SCH ×4 (04:32→20:05)
--- NOTE | 2019-09-03 07:56 | General Progress Note ---
Assessment/Plan Assessment/Plan: abd pain gallstones ? lest sided colitis h/o Diverticulosis abd us repeat labs stool studies may need colonoscopy stool OB will fu Subjective ROS Limited/Unobtainable: Yes Allergies: Coded Allergies: No Known Allergies (Unverified , 10/23/17) Objective Last 24 Hour Vital Signs Date Time Temp Pulse Resp B/P (MAP) Pulse Ox O2 Delivery O2 Flow Rate FiO2 09/03/19 04:00 57 09/03/19 03:58 97.5 57 128/69 (88) 09/03/19 00:00 98.0 52 135/66 (89) 09/02/19 23:59 57 09/02/19 21:00 Room Air 09/02/19 20:00 53 09/02/19 20:00 98.0 57 135/66 (89) 09/02/19 18:28 65 140/75 09/02/19 18:28 65 140/75 09/02/19 17:36 Room Air 09/02/19 14:55 97.9 81 18 144/79 97 Room Air 09/02/19 12:58 98.1 09/02/19 11:45 98.1 09/02/19 10:20 98.1 09/02/19 09:31 74 18 Room Air 09/02/19 09:31 98.1 78 18 152/75 97 Room Air 09/02/19 09:15 98.1 74 18 152/75 (100) 97 Room Air Intake and Output 09/02/19 09/03/19 19:00 07:00 Intake Total 500 ml Balance 500 ml Intake IV Total 500 ml # Voids 1 2 # Bowel Movements 1 1 Laboratory Tests 09/02/19 09:30: Urine Color Pale yellow, Urine Appearance Clear, Urine pH 5, Urine Specific [place] 1.015, Urine Protein 1+H, Urine Glucose (UA) Negative, Urine Ketones Negative, Urine Blood 5+H, Urine Nitrite Negative, Urine Bilirubin Negative, Urine Urobilinogen Normal, Urine Leukocyte Esterase Negative, Urine RBC 20-30H, Urine WBC 0-2, Urine Squamous Epithelial Cells Occasional, Urine Bacteria Occasional 09/02/19 09:50: White Blood Count 7.5, Red Blood Count 5.13, Hemoglobin 16.0, Hematocrit 46.3, Mean Corpuscular Volume 90, Mean Corpuscular Hemoglobin 31.1H, Mean Corpuscular Hemoglobin Concent 34.5, Red Cell Distribution Width 10.6L, Platelet Count 344, Mean Platelet Volume 6.7, Neutrophils (%) (Auto) 49.2, Lymphocytes (%) (Auto) 42.4, Monocytes (%) (Auto) 5.0, Eosinophils (%) (Auto) 1.3, Basophils (%) (Auto ) 2.1H, Prothrombin Time 9.8, Prothromb Time International Ratio 0.9, Activated Partial Thromboplast Time 27, Sodium Level 142, Potassium Level 4.3, Chloride Level 106, Carbon Dioxide Level 26, Anion Gap 10, Blood Urea Nitrogen 14, Creatinine 0.7, Estimat Glomerular Filtration Rate > 60, Glucose Level 117H, Calcium Level 9.2, Total Bilirubin 0.4, Aspartate Amino Transf (AST/SGOT) 24, Alanine Aminotransferase (ALT/SGPT) 43, Alkaline Phosphatase 87, Troponin I 0.023, Total Protein 8.4H, Albumin 4.3, Globulin 4.1, Albumin/Globulin Ratio 1.0 , Lipase 130 Height (Feet): 5 Height (Inches): 6.00 Weight (Pounds): 160 General Appearance: lethargic EENT: normal ENT inspection Neck: supple Cardiovascular: normal peripheral pulses Respiratory/Chest: lungs clear Abdomen: normal bowel sounds, non tender, soft Extremities: non-tender Milton Hassan MD Sep 03, 2019 07:56
[2019-09-03 08:31] VITALS: BP 144/60
[2019-09-03 08:35] LABS: BASOPHILS % (AUTO) 0.9 % (0.0-2.0); EOSINOPHILS % (AUTO) 1.2 % (0.0-3.0); HEMATOCRIT 40.1 % (37.0-47.0); HEMOGLOBIN 13.8 G/DL (12.0-16.0); LYMPHOCYTES % (AUTO) 25.4 % (20.0-45.0); MEAN CORPUSCULAR VOLUME 91 FL (80-99); MONOCYTES % (AUTO) 5.6 % (1.0-10.0); NEUTROPHILS % (AUTO) 66.8 % (45.0-75.0); PLATELET COUNT 296 K/UL (150-450); RED BLOOD COUNT 4.41 M/UL (4.20-5.40); RED CELL DISTRIBUTION WIDTH 10.9 % (11.6-14.8)
[2019-09-03 09:10] LABS: CHOLESTEROL 221 MG/DL (< 200); HDL CHOLESTEROL 37 MG/DL (40-60); TRIGLYCERIDES 208 MG/DL (30-150)
[2019-09-03] MEDS: Pantoprazole Inj IV SCH (09:31)
[2019-09-03] MEDS: Metoprolol Succinate XL 50mg tab ORAL SCH (09:31)
--- NOTE | 2019-09-03 11:21 | Consultation ---
History of Present Illness General Date patient seen: Sep 03, 2019 Reason for Hospitalization: Abdominal Pain Present Illness HPI This is a very pleasant 64-year-old female who presents after increased left- sided lower abdominal pain to the emergency room at [facility]. Patient had sudden onset of symptoms approximate 11 PM night prior to admission. Associated nausea. Subjective fever. Denies any hematuria. She had prior history of polyps to her intestine. No prior abdominal surgeries. Prior history of cardiac ablation. She denies any bloody stools or diarrhea but has had some slight increased looseness of stool. CT with gallstone and colitis surgery called to evaluate and assist with care patient seen, patient Paul, chart reviewed. Patient states pain is better. No nausea vomiting fever chills currently. Labs reviewed. Allergies: Coded Allergies: No Known Allergies (Unverified , 10/23/17) Medication History Scheduled Amlodipine Besylate* (Amlodipine Besylate*), 5 MG ORAL DAILY, (Reported) Metoprolol Succinate* (Metoprolol Succinate*), 50 MG ORAL DAILY, (Reported) Omeprazole (Omeprazole), 40 MG ORAL DAILY, (Reported) Simvastatin (Zocor), 20 MG ORAL BEDTIME, (Reported) Discontinued Medications Aspirin* (Aspirin*), 162 MG ORAL DAILY Discontinued Reason: MD discontinued med Clopidogrel* (Clopidogrel*), 75 MG ORAL DAILY, (Reported) Discontinued Reason: MD discontinued med Hydrocodone Bit/Acetaminophen 5-325* ([place] 5-325*), 1 TAB ORAL Q6H PRN for For Pain Discontinued Reason: Pt stopped taking med Levofloxacin (Levofloxacin*), 500 MG ORAL DAILY Discontinued Reason: Pt stopped taking med Meclizine Hcl* (Meclizine*), 25 MG ORAL BID Discontinued Reason: Pt stopped taking med Metronidazole* (Flagyl*), 500 MG ORAL THREE TIMES A DAY Discontinued Reason: Pt stopped taking med Prednisone* (Prednisone*), 10 MG ORAL DAILY, (Reported) Discontinued Reason: Pt stopped taking med Patient History History Provided By: Patient, Medical Record, PMD Healthcare decision maker Resuscitation status Full Code Advanced Directive on File Past Medical/Surgical History Past Medical/Surgical History: (1) Hypertensive emergency (2) Diverticulitis (3) Abdominal pain Review of Systems Review of Symptoms General ROS: no weight loss or fever Psychological ROS: no depression or mood changes, no memory loss Ophthalmic ROS: no visual changes or eye irritation ENT ROS: no nasal congestion, hearing loss, dizziness Allergy and Immunology ROS: no allergic symptoms or urticaria Hematological and Lymphatic ROS: no swollen glands, unusual bleeding or bruising Endocrine ROS: no polyuria, polydipsia, weight changes, temperature intolerance Respiratory ROS: no cough, shortness of breath, or wheezing Cardiovascular ROS: no chest pain or dyspnea on exertion Gastrointestinal ROS: abdominal pain, bright red blood in stool. Musculoskeletal ROS: no myalgias or arthralgias Neurological ROS: no TIA or stroke symptoms Dermatological ROS: no new or changing skin lesions, rashes or pruritis Physical Exam Physical Exam General appearance: alert, cooperative, no distress, appears stated age Head: Normocephalic, without obvious abnormality, atraumatic Eyes: conjunctivae/corneas clear. PERRL, EOM's intact. Fundi benign Throat: Lips, mucosa, and tongue normal. Teeth and gums normal Neck: supple, symmetrical, trachea midline, no adenopathy, thyroid: not enlarged, symmetric, no tenderness/mass/nodules, no carotid bruit and no JVD Lungs: clear to auscultation bilaterally Heart: regular rate and rhythm, S1, S2 normal, no murmur, click, rub or gallop Abdomen: soft, mild LLQ-tender. Bowel sounds normal. No masses, no organomegaly Extremities: extremities normal, atraumatic, no cyanosis or edema Pulses: 2+ and symmetric Skin: Skin color, texture, turgor normal. No rashes or lesions Neurologic: Grossly normal Last 24 Hour Vital Signs Date Time Temp Pulse Resp B/P (MAP) Pulse Ox O2 Delivery O2 Flow Rate FiO2 09/03/19 09:31 60 144/60 09/03/19 09:31 60 144/60 09/03/19 08:35 Room Air 09/03/19 08:31 97.7 60 16 144/60 (88) 98 09/03/19 04:00 57 09/03/19 03:58 97.5 57 128/69 (88) 09/03/19 00:00 98.0 52 135/66 (89) 09/02/19 23:59 57 09/02/19 21:00 Room Air 09/02/19 20:00 53 09/02/19 20:00 98.0 57 135/66 (89) 09/02/19 18:28 65 140/75 1/25/20 18:28 65 140/75 09/02/19 17:36 Room Air 09/02/19 14:55 97.9 81 18 144/79 97 Room Air 09/02/19 12:58 98.1 09/02/19 11:45 98.1 Intake and Output 09/02/19 09/03/19 18:59 06:59 Intake Total 500 ml Balance 500 ml Intake IV Total 500 ml # Voids 1 2 # Bowel Movements 1 1 Laboratory Tests Test 09/03/19 05:52 White Blood Count 9.0 K/UL (4.8-10.8) Red Blood Count 4.41 M/UL (4.20-5.40) Hemoglobin 13.8 G/DL (12.0-16.0) Hematocrit 40.1 % (37.0-47.0) Mean Corpuscular Volume 91 FL (80-99) Mean Corpuscular Hemoglobin 31.2 PG (27.0-31.0) H Mean Corpuscular Hemoglobin Concent 34.3 G/DL (32.0-36.0) Red Cell Distribution Width 10.9 % (11.6-14.8) L Platelet Count 296 K/UL (150-450) Mean Platelet Volume 6.5 FL (6.5-10.1) Neutrophils (%) (Auto) 66.8 % (45.0-75.0) Lymphocytes (%) (Auto) 25.4 % (20.0-45.0) Monocytes (%) (Auto) 5.6 % (1.0-10.0) Eosinophils (%) (Auto) 1.2 % (0.0-3.0) Basophils (%) (Auto) 0.9 % (0.0-2.0) Hemoglobin A1c 5.6 % (4.3-6.0) Magnesium Level 2.2 MG/DL (1.8-2.4) Triglycerides Level 208 MG/DL (30-150) H Cholesterol Level 221 MG/DL (< 200) H LDL Cholesterol 137 mg/dL (<100) H HDL Cholesterol 37 MG/DL (40-60) L Cholesterol/HDL Ratio 6.0 (3.3-4.4) H Thyroid Stimulating Hormone (TSH) 2.271 uiU/mL (0.358-3.740) Height (Feet): 5 Height (Inches): 6.00 Weight (Pounds): 160 Medications Current Medications Medications (Trade) Dose Ordered Sig/Jaydon Route PRN Reason Start Time Stop Time Status Last Admin Dose Admin Acetaminophen (Tylenol) 650 mg Q4H PRN ORAL Mild Pain (Pain Scale 1-3) 09/02/19 17:30 10/02/19 17:29 09/02/19 18:29 Amlodipine Besylate (Norvasc) 5 mg DAILY ORAL 09/02/19 17:30 10/02/19 17:29 09/03/19 09:31 Dextrose (Dextrose 50%) 25 ml Q30M PRN IV Hypoglycemia 09/02/19 17:30 10/02/19 17:29 Dextrose (Dextrose 50%) 50 ml Q30M PRN IV Hypoglycemia 09/02/19 17:30 10/02/19 17:29 Dextrose/Sodium Chloride 1,000 ml @ 100 mls/hr Q10H IV 09/02/19 18:21 10/02/19 18:20 09/03/19 04:24 Magnesium Hydroxide (Mom) 30 ml HSPRN PRN ORAL Constipation 09/02/19 17:30 10/02/19 17:29 Metoprolol Succinate (Toprol XL) 50 mg DAILY ORAL 09/02/19 17:30 10/02/19 17:29 09/03/19 09:31 Morphine Sulfate (Morphine Sulfate) 2 mg Q3HR PRN IVP Moderate Pain (Pain Scale 4-6) 09/02/19 17:30 09/09/19 17:29 Morphine Sulfate (Morphine Sulfate) 4 mg Q3HR PRN IVP Severe Pain (Pain Scale 7-10) 09/02/19 17:30 09/09/19 17:29 Pantoprazole (Protonix) 40 mg DAILY IV 09/03/19 09:00 10/03/19 08:59 09/03/19 09:31 Piperacillin Sod/ Tazobactam Sod 3.375 gm/Sodium Chloride 110 ml @ 27.5 mls/hr Q8H IVPB 09/02/19 20:00 09/09/19 19:59 09/03/19 04:32 Temazepam (Restoril) 15 mg DAILYPRN PRN ORAL Insomnia 09/02/19 17:30 09/09/19 17:29 Assessment/Plan Problem List: (1) Abdominal pain Assessment & Plan: 64-year-old female with left lower quadrant abdominal pain and cholelithiasis. Afebrile, hemodynamically stable, labs reviewed. CT reviewed On examination patient with mild left lower quadrant abdominal pain states improved. CT reviewed gallstones without clinical correlation No acute surgical intervention indicated Okay for diet from surgical standpoint Antibiotics IV fluids GI eval thank you will follow with recs ICD Codes: R10.9 - Unspecified abdominal pain SNOMED: 45739183 (2) Diverticulitis Assessment & Plan: 1. Mild wall thickening of the descending and sigmoid colon. This is most likely related to underdistention although cannot exclude a mild colitis. No adjacent inflammatory changes, free air, or fluid collections. 2. Cholelithiasis with a subcentimeter stone in the gallbladder neck. No gallbladder wall thickening or adjacent inflammatory stranding. No biliary ductal dilatation. 3. Scattered punctate calcified granulomas in the liver, suggesting prior granulomatous disease. ICD Codes: K57.92 - Diverticulitis of intestine, part unspecified, without perforation or abscess without bleeding SNOMED: 783774087 Nish Franks Sep 03, 2019 11:21
[2019-09-03 12:00] VITALS: BP 113/54
--- NOTE | 2019-09-03 12:45 | General Progress Note ---
Assessment/Plan Problem List: (1) HTN (hypertension) ICD Codes: I10 - Essential (primary) hypertension SNOMED: 87793066 (2) GERD (gastroesophageal reflux disease) ICD Codes: K21.9 - Gastro-esophageal reflux disease without esophagitis SNOMED: 566823006 (3) Hyperlipemia ICD Codes: E78.5 - Hyperlipidemia, unspecified SNOMED: 33391524 (4) Diverticulitis ICD Codes: K57.92 - Diverticulitis of intestine, part unspecified, without perforation or abscess without bleeding SNOMED: 322842948 (5) Abdominal pain ICD Codes: R10.9 - Unspecified abdominal pain SNOMED: 79319209 Assessment/Plan: abxs follow labs GI F/U discussed with pt and dr Hassan Subjective Allergies: Coded Allergies: No Known Allergies (Unverified , 10/23/17) Subjective abd pain is better Objective Last 24 Hour Vital Signs Date Time Temp Pulse Resp B/P (MAP) Pulse Ox O2 Delivery O2 Flow Rate FiO2 09/03/19 09:31 60 144/60 09/03/19 09:31 60 144/60 09/03/19 08:35 Room Air 09/03/19 08:31 97.7 60 16 144/60 (88) 98 09/03/19 04:00 57 09/03/19 03:58 97.5 57 128/69 (88) 09/03/19 00:00 98.0 52 135/66 (89) 09/02/19 23:59 57 09/02/19 21:00 Room Air 09/02/19 20:00 53 09/02/19 20:00 98.0 57 135/66 (89) 09/02/19 18:28 65 140/75 09/02/19 18:28 65 140/75 09/02/19 17:36 Room Air 09/02/19 14:55 97.9 81 18 144/79 97 Room Air 09/02/19 12:58 98.1 Intake and Output 09/02/19 09/03/19 19:00 07:00 Intake Total 500 ml Balance 500 ml Intake IV Total 500 ml # Voids 1 2 # Bowel Movements 1 1 Laboratory Tests 09/03/19 05:52: White Blood Count 9.0, Red Blood Count 4.41, Hemoglobin 13.8, Hematocrit 40.1, Mean Corpuscular Volume 91, Mean Corpuscular Hemoglobin 31.2H, Mean Corpuscular Hemoglobin Concent 34.3, Red Cell Distribution Width 10.9L, Platelet Count 296, Mean Platelet Volume 6.5, Neutrophils (%) (Auto) 66.8, Lymphocytes (%) (Auto) 25.4, Monocytes (%) (Auto) 5.6, Eosinophils (%) (Auto) 1.2, Basophils (%) (Auto ) 0.9, Hemoglobin A1c 5.6, Magnesium Level 2.2, Triglycerides Level 208H, Cholesterol Level 221H, LDL Cholesterol 137H, HDL Cholesterol 37L, Cholesterol/ HDL Ratio 6.0H, Thyroid Stimulating Hormone (TSH) 2.271 Height (Feet): 5 Height (Inches): 6.00 Weight (Pounds): 160 Cardiovascular: normal rate Respiratory/Chest: lungs clear Abdomen: tender - Lobo Adrian abd, MD Sep 03, 2019 12:45
[2019-09-03 16:00] VITALS: BP 132/68
[2019-09-03 20:32] VITALS: BP 120/57
[2019-09-04] VITALS: BP 119/59
[2019-09-04] MEDS: D5 1/2NS 1,000 ML IV SCH ×3 (00:40→21:45)
[2019-09-04] MEDS ORDERED: Zoysn 3.37gm in NS 100ML IVPB SCH (01:00)
[2019-09-04] MEDS: Zoysn 3.37gm in NS 100ML IVPB SCH ×3 (03:51→21:45)
[2019-09-04 04:11] VITALS: BP 120/60
[2019-09-04 07:53] LABS: BASOPHILS % (AUTO) 1.9 % (0.0-2.0); EOSINOPHILS % (AUTO) 2.5 % (0.0-3.0); HEMATOCRIT 42.8 % (37.0-47.0); HEMOGLOBIN 14.7 G/DL (12.0-16.0); LYMPHOCYTES % (AUTO) 32.6 % (20.0-45.0); MEAN CORPUSCULAR VOLUME 91 FL (80-99); MONOCYTES % (AUTO) 7.1 % (1.0-10.0); NEUTROPHILS % (AUTO) 55.8 % (45.0-75.0); PLATELET COUNT 275 K/UL (150-450); RED CELL DISTRIBUTION WIDTH 10.6 % (11.6-14.8); WHITE BLOOD COUNT 5.1 K/UL (4.8-10.8)
[2019-09-04 07:57] LABS: ALANINE AMINOTRANSFERASE 35 U/L (12-78); ALBUMIN 3.6 G/DL (3.4-5.0); ALBUMIN/GLOBULIN RATIO 0.9 (1.0-2.7); ALKALINE PHOSPHATASE 73 U/L (46-116); ANION GAP 8 mmol/L (5-15); ASPARTATE AMINO TRANSFERASE 25 U/L (15-37); BILIRUBIN,TOTAL 0.5 MG/DL (0.2-1.0); BLOOD UREA NITROGEN 10 mg/dL (7-18); CALCIUM 8.3 MG/DL (8.5-10.1); CARBON DIOXIDE 26 MMOL/L (21-32); CHLORIDE 108 MMOL/L (98-107); CREATININE 0.8 MG/DL (0.55-1.30); POTASSIUM 3.4 MMOL/L (3.5-5.1); SODIUM 142 MMOL/L (136-145)
[2019-09-04 08:00] VITALS: BP 126/59
[2019-09-04] MEDS: Pantoprazole Inj IV SCH (09:25)
[2019-09-04] MEDS: Metoprolol Succinate XL 50mg tab ORAL SCH (09:25)
--- NOTE | 2019-09-04 10:57 | Diagnostic Imaging Report ---
Indication: Abdominal pain Technique: Grayscale and duplex Doppler imaging of the abdomen performed. Comparison: None Findings: The liver is echogenic consistent with fatty infiltration. Doppler interrogation of the main portal vein shows patency with hepatopedal, monophasic flow. CBD is 7 mm in diameter. Gallbladder is notable for a small stone at the neck. There demonstrated part of the pancreas, aorta and IVC show no definite abnormalities. Both kidneys appear unremarkable. There is no hydronephrosis. IMPRESSION: Fatty liver Gallstone
[2019-09-04 12:00] VITALS: BP 124/67
--- NOTE | 2019-09-04 12:04 | General Progress Note ---
Assessment/Plan Problem List: (1) HTN (hypertension) ICD Codes: I10 - Essential (primary) hypertension SNOMED: 70445266 (2) GERD (gastroesophageal reflux disease) ICD Codes: K21.9 - Gastro-esophageal reflux disease without esophagitis SNOMED: 604157794 (3) Hyperlipemia ICD Codes: E78.5 - Hyperlipidemia, unspecified SNOMED: 17029648 (4) Diverticulitis ICD Codes: K57.92 - Diverticulitis of intestine, part unspecified, without perforation or abscess without bleeding SNOMED: 028435058 (5) Abdominal pain ICD Codes: R10.9 - Unspecified abdominal pain SNOMED: 39390672 Assessment/Plan: abxs follow labs GI F/U discussed with pt and Dr Dong Subjective Allergies: Coded Allergies: No Known Allergies (Unverified , 10/23/17) Subjective still with abd pain Objective Last 24 Hour Vital Signs Date Time Temp Pulse Resp B/P (MAP) Pulse Ox O2 Delivery O2 Flow Rate FiO2 09/04/19 09:25 58 120/60 09/04/19 09:25 58 120/60 09/04/19 08:34 Room Air 09/04/19 04:11 97.4 58 18 120/60 (80) 98 09/04/19 03:34 51 09/04/19 00:00 97.5 59 18 119/59 (79) 98 09/03/19 23:24 53 09/03/19 20:32 97.5 52 16 120/57 (78) 98 09/03/19 20:29 Room Air 09/03/19 19:01 64 09/03/19 16:00 61 09/03/19 16:00 97.3 56 16 132/68 (89) 98 09/03/19 12:00 97.2 55 16 113/54 (73) 97 09/03/19 12:00 64 Intake and Output 09/03/19 09/04/19 19:00 07:00 Intake Total 750 ml Output Total 0 ml Balance 750 ml Intake Oral 750 ml Output Stool Total 0 ml # Voids 3 2 # Bowel Movements 1 2 Laboratory Tests 09/04/19 04:30: Stool Occult Blood [Pending] 09/04/19 05:56: White Blood Count 5.1, Red Blood Count 4.70, Hemoglobin 14.7, Hematocrit 42.8, Mean Corpuscular Volume 91, Mean Corpuscular Hemoglobin 31.3H, Mean Corpuscular Hemoglobin Concent 34.3, Red Cell Distribution Width 10.6L, Platelet Count 275, Mean Platelet Volume 6.2L, Neutrophils (%) (Auto) 55.8, Lymphocytes (%) (Auto) 32.6, Monocytes (%) (Auto) 7.1, Eosinophils (%) (Auto) 2.5, Basophils (%) (Auto ) 1.9, Sodium Level 142, Potassium Level 3.4L, Chloride Level 108H, Carbon Dioxide Level 26, Anion Gap 8, Blood Urea Nitrogen 10, Creatinine 0.8, Estimat Glomerular Filtration Rate > 60, Glucose Level 96, Calcium Level 8.3L, Total Bilirubin 0.5, Aspartate Amino Transf (AST/SGOT) 25, Alanine Aminotransferase ( ALT/SGPT) 35, Alkaline Phosphatase 73, Total Protein 7.5, Albumin 3.6, Globulin 3.9, Albumin/Globulin Ratio 0.9L Height (Feet): 5 Height (Inches): 6.00 Weight (Pounds): 160 Cardiovascular: normal rate Respiratory/Chest: lungs clear Abdomen: soft, tender Edema: no edema noted Generalized Lobo Quesada MD Sep 04, 2019 12:04
--- NOTE | 2019-09-04 13:43 | Surgery Progress Note ---
Surgery Progress Note Subjective Symptoms: not tolerating diet, passing flatus, BM Additional Comments pelvic lower abdominal discomfort no n/v/f/c labs okay us noted improving Objective Last 24 Hour Vital Signs Date Time Temp Pulse Resp B/P (MAP) Pulse Ox O2 Delivery O2 Flow Rate FiO2 09/04/19 09:25 58 120/60 09/04/19 09:25 58 120/60 09/04/19 08:34 Room Air 09/04/19 04:11 97.4 58 18 120/60 (80) 98 09/04/19 03:34 51 09/04/19 00:00 97.5 59 18 119/59 (79) 98 09/03/19 23:24 53 09/03/19 20:32 97.5 52 16 120/57 (78) 98 09/03/19 20:29 Room Air 09/03/19 19:01 64 09/03/19 16:00 61 09/03/19 16:00 97.3 56 16 132/68 (89) 98 I&O Intake and Output 09/03/19 09/04/19 19:00 07:00 Intake Total 750 ml Output Total 0 ml Balance 750 ml Intake Oral 750 ml Output Stool Total 0 ml # Voids 3 2 # Bowel Movements 1 2 Cardiovascular: RSR Respiratory: clear Abdomen: soft, non-tender, present bowel sounds, non-distended Extremities: no edema, no tenderness, no cyanosis Laboratory Tests Test 09/04/19 04:30 09/04/19 05:56 Stool Occult Blood Negative (NEGATIVE) White Blood Count 5.1 K/UL (4.8-10.8) Red Blood Count 4.70 M/UL (4.20-5.40) Hemoglobin 14.7 G/DL (12.0-16.0) Hematocrit 42.8 % (37.0-47.0) Mean Corpuscular Volume 91 FL (80-99) Mean Corpuscular Hemoglobin 31.3 PG (27.0-31.0) H Mean Corpuscular Hemoglobin Concent 34.3 G/DL (32.0-36.0) Red Cell Distribution Width 10.6 % (11.6-14.8) L Platelet Count 275 K/UL (150-450) Mean Platelet Volume 6.2 FL (6.5-10.1) L Neutrophils (%) (Auto) 55.8 % (45.0-75.0) Lymphocytes (%) (Auto) 32.6 % (20.0-45.0) Monocytes (%) (Auto) 7.1 % (1.0-10.0) Eosinophils (%) (Auto) 2.5 % (0.0-3.0) Basophils (%) (Auto) 1.9 % (0.0-2.0) Sodium Level 142 MMOL/L (136-145) Potassium Level 3.4 MMOL/L (3.5-5.1) L Chloride Level 108 MMOL/L (98-107) H Carbon Dioxide Level 26 MMOL/L (21-32) Anion Gap 8 mmol/L (5-15) Blood Urea Nitrogen 10 mg/dL (7-18) Creatinine 0.8 MG/DL (0.55-1.30) Estimat Glomerular Filtration Rate > 60 mL/min (>60) Glucose Level 96 MG/DL (74-106) Calcium Level 8.3 MG/DL (8.5-10.1) L Total Bilirubin 0.5 MG/DL (0.2-1.0) Aspartate Amino Transf (AST/SGOT) 25 U/L (15-37) Alanine Aminotransferase (ALT/SGPT) 35 U/L (12-78) Alkaline Phosphatase 73 U/L (46-116) Total Protein 7.5 G/DL (6.4-8.2) Albumin 3.6 G/DL (3.4-5.0) Globulin 3.9 g/dL Albumin/Globulin Ratio 0.9 (1.0-2.7) L Plan Problems: (1) Abdominal pain Assessment & Plan: 64-year-old female with left lower quadrant abdominal pain and cholelithiasis. Afebrile, hemodynamically stable, labs reviewed. CT reviewed On examination patient with mild left lower quadrant abdominal pain states improved. CT reviewed gallstones without clinical correlation No acute surgical intervention indicated Okay for diet from surgical standpoint Antibiotics IV fluids GI eval US noted gallstone likely incidental finding thank you will follow with recs (2) Diverticulitis Assessment & Plan: 1. Mild wall thickening of the descending and sigmoid colon. This is most likely related to underdistention although cannot exclude a mild colitis. No adjacent inflammatory changes, free air, or fluid collections. 2. Cholelithiasis with a subcentimeter stone in the gallbladder neck. No gallbladder wall thickening or adjacent inflammatory stranding. No biliary ductal dilatation. 3. Scattered punctate calcified granulomas in the liver, suggesting prior granulomatous disease. Nish Franks Sep 04, 2019 13:43
[2019-09-04] MEDS ORDERED: Tubing IV Secondary IV ONE (15:55)
[2019-09-04 16:00] VITALS: BP 138/65
[2019-09-04] MEDS ORDERED: Nulytely 4L ORAL SCH (17:00)
[2019-09-04 20:00] VITALS: BP 159/80
--- NOTE | 2019-09-04 21:02 | General Progress Note ---
Assessment/Plan Assessment/Plan: Assessment - abd pain - (L) sided colonic wall thickening, ? significance, ? underdistention, ? ischemic colitis - No diverticulitis seen on CT - Hematuria - cholelithiasis Recommendations - Clears - GI prep - colonoscopy tomorrow - re check U/A Subjective Allergies: Coded Allergies: No Known Allergies (Unverified , 10/23/17) Subjective Above noted patient c/o dark red stool last night and this am but OB negative specimen from today still with pelvic pain d/w patient re CT results wants to have evaluation / colonoscopy Objective Last 24 Hour Vital Signs Date Time Temp Pulse Resp B/P (MAP) Pulse Ox O2 Delivery O2 Flow Rate FiO2 09/04/19 09:25 58 120/60 09/04/19 09:25 58 120/60 09/04/19 08:34 Room Air 09/04/19 04:11 97.4 58 18 120/60 (80) 98 09/04/19 03:34 51 09/04/19 00:00 97.5 59 18 119/59 (79) 98 09/03/19 23:24 53 Intake and Output 09/03/19 09/04/19 19:00 07:00 Intake Total 750 ml Output Total 0 ml Balance 750 ml Intake Oral 750 ml Output Stool Total 0 ml # Voids 3 2 # Bowel Movements 1 2 Laboratory Tests 09/04/19 04:30: Stool Occult Blood Negative 09/04/19 05:56: White Blood Count 5.1, Red Blood Count 4.70, Hemoglobin 14.7, Hematocrit 42.8, Mean Corpuscular Volume 91, Mean Corpuscular Hemoglobin 31.3H, Mean Corpuscular Hemoglobin Concent 34.3, Red Cell Distribution Width 10.6L, Platelet Count 275, Mean Platelet Volume 6.2L, Neutrophils (%) (Auto) 55.8, Lymphocytes (%) (Auto) 32.6, Monocytes (%) (Auto) 7.1, Eosinophils (%) (Auto) 2.5, Basophils (%) (Auto ) 1.9, Sodium Level 142, Potassium Level 3.4L, Chloride Level 108H, Carbon Dioxide Level 26, Anion Gap 8, Blood Urea Nitrogen 10, Creatinine 0.8, Estimat Glomerular Filtration Rate > 60, Glucose Level 96, Calcium Level 8.3L, Total Bilirubin 0.5, Aspartate Amino Transf (AST/SGOT) 25, Alanine Aminotransferase ( ALT/SGPT) 35, Alkaline Phosphatase 73, Total Protein 7.5, Albumin 3.6, Globulin 3.9, Albumin/Globulin Ratio 0.9L Height (Feet): 5 Height (Inches): 6.00 Weight (Pounds): 160 Objective WDWN woman NCAT supple CTA RR abd soft, Mild midline pelvic TTP no edema Owen Dong MD Sep 04, 2019 21:02
[2019-09-05] VITALS (13 sets, daily range): BP systolic 101–152; BP diastolic 53–82
[2019-09-05 03:03] LABS: APPEARANCE,URINE CLEAR; BILIRUBIN, URINE NEGATIVE (NEGATIVE); COLOR,URINE PALE YELLOW; GLUCOSE, URINE (UA) NEGATIVE (NEGATIVE); KETONES,URINE NEGATIVE (NEGATIVE); LEUKOCYTE ESTERASE ,URINE NEGATIVE (NEGATIVE); NITRITE,URINE NEGATIVE (NEGATIVE); PH,URINE 6.5 (4.5-8.0); PROTEIN,URINE 1+ (NEGATIVE); UROBILINOGEN,URINE NORMAL MG/DL (0.0-1.0)
[2019-09-05] MEDS: D5 1/2NS 1,000 ML IV SCH ×3 (05:25→17:09)
[2019-09-05] MEDS: Zoysn 3.37gm in NS 100ML IVPB SCH ×2 (05:27→11:39)
[2019-09-05] MEDS: Pantoprazole Inj IV SCH (08:59)
[2019-09-05] MEDS: Metoprolol Succinate XL 50mg tab ORAL SCH (09:00)
[2019-09-05] MEDS ORDERED: Midazolam 2mg/2ml Inj ONE (12:14)
[2019-09-05] MEDS ORDERED: fentaNYL 100 mcg/2 mL IV ONE (12:14)
--- NOTE | 2019-09-05 12:31 | Anethesia Preoperative Eval ---
Anesthesia Pre-op PMH/ROS General Date of Evaluation: Sep 05, 2019 Time of Evaluation: 12:27 Anesthesiologist: Desiree ASA Score: ASA 2 Mallampati Score Class I : Soft palate, uvula, fauces, pillars visible Class II: Soft palate, uvula, fauces visible Class III: Soft palate, base of uvula visible Class IV: Only hard plate visible Mallampati Classification: Class II Surgeon: Tracy Diagnosis: Abdominal pain Surgical Procedure: Colonoscopy Anesthesia History: none Family History: no anesthesia problems Allergies: Coded Allergies: No Known Allergies (Unverified , 10/23/17) Medications: see eMAR Patient NPO?: Yes Past Medical History Cardiovascular: Reports: HTN, arrhythmia - h/o AF s/p ablasion Pulmonary: Denies: asthma, COPD, MANOLO, other Gastrointestinal/Genitourinary: Reports: GERD; Denies: CRI, ESRD, other Neurologic/Psychiatric: Denies: dementia, CVA, depression/anxiety, TIA, other Endocrine: Reports: DM - borderline; Denies: hypothyroidism, steroids, other HEENT: Denies: cataract (L), cataract (R), glaucoma, SHISHMAREF IRA (L), SHISHMAREF IRA (R), other Hematology/Immune: Denies: anemia, DVT, bleeding disorder, other Musculoskeletal/Integumentary: Denies: OA, RA, DJD, DDD, edema, other PMH Narrative: admitted for abdominal pain, as above PSxH Narrative: Cardiac ablation Anesthesia Pre-op Phys. Exam Physician Exam Last Vital Signs Date Time Temp Pulse Resp B/P (MAP) Pulse Ox O2 Delivery O2 Flow Rate FiO2 09/05/19 09:00 56 135/55 09/05/19 09:00 Room Air 09/05/19 08:00 97.9 18 98 Constitutional: NAD Neurologic: CN 2-12 intact Cardiovascular: RRR, no M/R/G Respiratory: CTA Gastrointestinal: S/NT/ND Airway Exam Mallampati Score: Class II MO: full Neck: flexible ROM: limited Teeth: missing Dentures: no upper, no lower Anesthesia Pre-op A/P Labs see chart Studies Pre-op Studies: EKG - SR Risk Assessment & Plan Assessment: ASA 2 Plan: MAC Status Change Before Surgery: No Pre-Antibiotics Drug: none Wei Ramírez MD Sep 05, 2019 12:31
[2019-09-05] MEDS ORDERED: fentaNYL 100 mcg/2 mL IV PRN (12:45)
[2019-09-05] MEDS ORDERED: NS 500ML IVPB ONE (12:50)
--- NOTE | 2019-09-05 12:52 | Pre-Procedure Note/Attestation ---
Pre-Procedure Note/Attestation Complete Prior to Procedure Planned Procedure: not applicable Procedure Narrative: colon Indications for Procedure Pre-Operative Diagnosis: abnormal CT Attestation I attest that I discussed the nature of the procedure; its benefits; risks and complications; and alternatives (and the risks and benefits of such alternatives ), prior to the procedure, with the patient (or the patient's legal patient service representative). I attest that, if there was a reasonable possibility of needing a blood transfusion, the patient (or the patient's legal patient service representative) was given the [facility] standardized written summary, pursuant to the Vikas [place] Blood Safety Act ([place] Health and Safety Code # 1645, as amended). I attest that I re-evaluated the patient just prior to the surgery and that there has been no change in the patient's H&P, except as documented below: Owen Dong MD Sep 05, 2019 12:52
--- NOTE | 2019-09-05 12:52 | General Progress Note ---
Assessment/Plan Assessment/Plan: Assessment - Hematuria w/o pyuria, appears worse, ? cause of pelvic pain - (L) sided colonic wall thickening, ? significance - colonoscopy today - No diverticulitis seen on CT - cholelithiasis Recommendations - NPO - colonoscopy today - Consider Urology opinion Subjective Allergies: Coded Allergies: No Known Allergies (Unverified , 10/23/17) Subjective Above noted (+) BM with prep d/w patient and PMD re hematuria Objective Last 24 Hour Vital Signs Date Time Temp Pulse Resp B/P (MAP) Pulse Ox O2 Delivery O2 Flow Rate FiO2 09/05/19 09:00 56 135/55 09/05/19 09:00 56 135/55 09/05/19 09:00 Room Air 09/05/19 08:00 97.9 56 18 135/55 (81) 98 09/05/19 08:00 59 09/05/19 04:00 50 09/05/19 04:00 97.7 60 18 136/76 (96) 98 09/05/19 00:00 59 09/05/19 00:00 97.4 63 20 101/82 (88) 95 09/04/19 21:00 Room Air 09/04/19 20:00 97.5 61 19 159/80 (106) 99 09/04/19 20:00 65 09/04/19 16:00 61 09/04/19 16:00 97.5 62 18 138/65 (89) 100 Intake and Output 09/04/19 09/05/19 19:00 07:00 Intake Total 1340 ml 127.5 ml Balance 1340 ml 127.5 ml Intake Oral 1340 ml IV Total 127.5 ml # Voids 4 4 # Bowel Movements 1 8 Laboratory Tests 09/05/19 01:20: Urine Color Pale yellow, Urine Appearance Clear, Urine pH 6.5, Urine Specific [place] 1.005, Urine Protein 1+H, Urine Glucose (UA) Negative, Urine Ketones Negative, Urine Blood 5+H, Urine Nitrite Negative, Urine Bilirubin Negative, Urine Urobilinogen Normal, Urine Leukocyte Esterase Negative, Urine RBC TntcH, Urine WBC 0-2, Urine Squamous Epithelial Cells None, Urine Bacteria None Height (Feet): 5 Height (Inches): 5.00 Weight (Pounds): 160 Objective WDWN woman NCAT supple CTA RR abd soft, Mild midline pelvic TTP no edema Owen Dong MD Sep 05, 2019 12:52
--- NOTE | 2019-09-05 12:53 | Surgery Progress Note ---
Surgery Progress Note Subjective Additional Comments improving colonoscopy today. received prep will await results no n/v/f/c Objective Last 24 Hour Vital Signs Date Time Temp Pulse Resp B/P (MAP) Pulse Ox O2 Delivery O2 Flow Rate FiO2 09/05/19 09:00 56 135/55 09/05/19 09:00 56 135/55 09/05/19 09:00 Room Air 09/05/19 08:00 97.9 56 18 135/55 (81) 98 09/05/19 08:00 59 09/05/19 04:00 50 09/05/19 04:00 97.7 60 18 136/76 (96) 98 09/05/19 00:00 59 09/05/19 00:00 97.4 63 20 101/82 (88) 95 09/04/19 21:00 Room Air 09/04/19 20:00 97.5 61 19 159/80 (106) 99 09/04/19 20:00 65 09/04/19 16:00 61 09/04/19 16:00 97.5 62 18 138/65 (89) 100 I&O Intake and Output 09/04/19 09/05/19 19:00 07:00 Intake Total 1340 ml 127.5 ml Balance 1340 ml 127.5 ml Intake Oral 1340 ml IV Total 127.5 ml # Voids 4 4 # Bowel Movements 1 8 Cardiovascular: RSR Respiratory: clear Abdomen: soft, non-tender, present bowel sounds Extremities: no edema, no tenderness, no cyanosis Laboratory Tests Test 09/05/19 01:20 Urine Color Pale yellow Urine Appearance Clear Urine pH 6.5 (4.5-8.0) Urine Specific [place] 1.005 (1.005-1.035) Urine Protein 1+ (NEGATIVE) H Urine Glucose (UA) Negative (NEGATIVE) Urine Ketones Negative (NEGATIVE) Urine Blood 5+ (NEGATIVE) H Urine Nitrite Negative (NEGATIVE) Urine Bilirubin Negative (NEGATIVE) Urine Urobilinogen Normal MG/DL (0.0-1.0) Urine Leukocyte Esterase Negative (NEGATIVE) Urine RBC Tntc /HPF (0 - 2) H Urine WBC 0-2 /HPF (0 - 2) Urine Squamous Epithelial Cells None /LPF (NONE/OCC) Urine Bacteria None /HPF (NONE) Plan Problems: (1) Abdominal pain Assessment & Plan: 64-year-old female with left lower quadrant abdominal pain and cholelithiasis. Afebrile, hemodynamically stable, labs reviewed. CT reviewed On examination patient with mild left lower quadrant abdominal pain states improved. CT reviewed gallstones without clinical correlation No acute surgical intervention indicated Okay for diet from surgical standpoint Antibiotics IV fluids GI eval - colonoscopy today US noted gallstone likely incidental finding thank you will follow with recs (2) Diverticulitis Assessment & Plan: 1. Mild wall thickening of the descending and sigmoid colon. This is most likely related to underdistention although cannot exclude a mild colitis. No adjacent inflammatory changes, free air, or fluid collections. 2. Cholelithiasis with a subcentimeter stone in the gallbladder neck. No gallbladder wall thickening or adjacent inflammatory stranding. No biliary ductal dilatation. 3. Scattered punctate calcified granulomas in the liver, suggesting prior granulomatous disease. Nish Franks Sep 05, 2019 12:53
[2019-09-05] MEDS ORDERED: Propofol 200mg/20ml IV ONE (13:00)
--- NOTE | 2019-09-05 13:20 | Immediate Post-Op Evaluation ---
Immediate Post-Op Evalulation Immediate Post-Op Evalulation Procedure: Colonoscopy Date of Evaluation: Sep 05, 2019 Time of Evaluation: 13:19 IV Fluids: 300 Blood Products: none Estimated Blood Loss: none Urinary Output: none Blood Pressure Systolic: 142 Blood Pressure Diastolic: 76 Pulse Rate: 62 Respiratory Rate: 20 O2 Sat by Pulse Oximetry: 99 Temperature (Fahrenheit): 98.7 Pain Score (1-10): 1 Nausea: No Vomiting: No Complications none Patient Status: awake, patent, none Hydration Status: adequate Wei Ramírez MD Sep 05, 2019 13:20
--- NOTE | 2019-09-05 13:23 | Endoscopy Procedure Note ---
Endoscopy Procedure Note General Indication for Procedure: abnormal CT scan Procedures Performed: colonoscopy Operative Findings/Diagnosis: normal colon to TI Specimen: yes Pt Tolerated Procedure Well: Yes Estimated Blood Loss: none Anesthesia Anesthesiologist: Dr. Mg Anesthesia: MAC Medications Medication Given: see anesthesia record Inserted Devices Implant(s) used?: No GI Core Measures 50 yrs or older w/o bx or poly: Not Applicable 10yrs. F/U recommended: Not Applicable Owen Dong MD Sep 05, 2019 13:23
--- NOTE | 2019-09-05 13:24 | Brief Operative Note ---
Immediate Post Operative Note Operative Note Chief Complaint: abnormal CT Pre-op Diagnosis: abnormal CT Procedure: Colon bx Surgeon: jessica Anesthesiologist: see report Specimen: yes Complications: none Condition: stable Fluids: per anesthesia Estimated Blood Loss: none Drains: none Implant(s) used?: No Owen Dong MD Sep 05, 2019 13:24
[2019-09-05] MEDS ORDERED: Milk of Magnesia 30ml Ud ORAL PRN (17:30)
--- NOTE | 2019-09-05 17:48 | 48 Hour Post Anesthesia Eval ---
Post Anesthesia Evaluation Procedure: Colonoscopy Date of Evaluation: Sep 05, 2019 Time of Evaluation: 17:47 Blood Pressure Systolic: 136 0: 72 Pulse Rate: 68 Respiratory Rate: 20 Temperature (Fahrenheit): 97.6 O2 Sat by Pulse Oximetry: 98 Airway: patent Nausea: No Vomiting: No Pain Intensity: 2 Hydration Status: adequate Cardiopulmonary Status: stable Mental Status/LOC: patient returned to baseline Follow-up Care/Observations: n/a Post-Anesthesia Complications: none Follow-up care needed: N/A Wei Ramírez MD Sep 05, 2019 17:48
[2019-09-05] MEDS ORDERED: Morphine Sulfate 4mg/ml Inj (IV USE ONLY) IVP PRN (18:00)
[2019-09-05] MEDS ORDERED: Morphine Sulfate 2mg/ml Inj(IV/IM USE ONLY) IVP PRN (18:00)
[2019-09-05] MEDS: Piperacillin/Tazobactam 3.375 GM in NS 110 ML IVPB SCH (20:02)
--- NOTE | 2019-09-05 22:20 | General Progress Note ---
Assessment/Plan Problem List: (1) HTN (hypertension) ICD Codes: I10 - Essential (primary) hypertension SNOMED: 88593586 (2) GERD (gastroesophageal reflux disease) ICD Codes: K21.9 - Gastro-esophageal reflux disease without esophagitis SNOMED: 341219312 (3) Hyperlipemia ICD Codes: E78.5 - Hyperlipidemia, unspecified SNOMED: 56119041 (4) Diverticulitis ICD Codes: K57.92 - Diverticulitis of intestine, part unspecified, without perforation or abscess without bleeding SNOMED: 757083469 (5) Abdominal pain ICD Codes: R10.9 - Unspecified abdominal pain SNOMED: 73247039 Assessment/Plan: abxs follow labs consult discussed with pt and Dr Dong Subjective Allergies: Coded Allergies: No Known Allergies (Unverified , 10/23/17) Subjective still with abd pain Objective Last 24 Hour Vital Signs Date Time Temp Pulse Resp B/P (MAP) Pulse Ox O2 Delivery O2 Flow Rate FiO2 09/05/19 20:42 Room Air 09/05/19 20:00 97.8 72 16 152/71 (98) 98 09/05/19 17:48 68 20 98 09/05/19 17:30 97.4 70 18 138/62 (87) 99 09/05/19 17:10 Room Air 09/05/19 16:00 97.9 72 18 135/53 (80) 99 09/05/19 16:00 71 09/05/19 13:44 97.4 62 17 145/74 98 Room Air 09/05/19 13:35 60 19 140/70 98 Room Air 09/05/19 13:30 62 18 140/73 99 Room Air 09/05/19 13:25 59 20 143/71 100 Nasal Cannula 3 09/05/19 13:20 55 17 141/71 100 Nasal Cannula 3 09/05/19 13:20 62 20 99 09/05/19 13:15 98.5 57 14 141/72 100 Nasal Cannula 3 09/05/19 12:00 59 09/05/19 12:00 97.7 62 18 114/55 (74) 98 09/05/19 09:00 56 135/55 09/05/19 09:00 56 135/55 09/05/19 09:00 Room Air 09/05/19 08:00 97.9 56 18 135/55 (81) 98 09/05/19 08:00 59 09/05/19 04:00 50 09/05/19 04:00 97.7 60 18 136/76 (96) 98 09/05/19 00:00 59 09/05/19 00:00 97.4 63 20 101/82 (88) 95 Intake and Output 09/04/19 09/05/19 19:00 07:00 Intake Total 1340 ml 127.5 ml Balance 1340 ml 127.5 ml Intake Oral 1340 ml IV Total 127.5 ml # Voids 4 4 # Bowel Movements 1 8 Laboratory Tests 09/05/19 01:20: Urine Color Pale yellow, Urine Appearance Clear, Urine pH 6.5, Urine Specific [place] 1.005, Urine Protein 1+H, Urine Glucose (UA) Negative, Urine Ketones Negative, Urine Blood 5+H, Urine Nitrite Negative, Urine Bilirubin Negative, Urine Urobilinogen Normal, Urine Leukocyte Esterase Negative, Urine RBC TntcH, Urine WBC 0-2, Urine Squamous Epithelial Cells None, Urine Bacteria None Height (Feet): 5 Height (Inches): 5.00 Weight (Pounds): 160 Cardiovascular: normal rate Respiratory/Chest: lungs clear Edema: no edema noted Generalized Lobo Quesada MD Sep 05, 2019 22:20
[2019-09-06] VITALS: BP 108/59
[2019-09-06 04:00] VITALS: BP 130/78
[2019-09-06] MEDS: Piperacillin/Tazobactam 3.375 GM in NS 110 ML IVPB SCH ×2 (04:22→13:30)
[2019-09-06] MEDS: D5 1/2NS 1,000 ML IV SCH (04:23)
[2019-09-06 08:00] VITALS: BP 143/73
[2019-09-06] MEDS ORDERED: Metoprolol Succinate XL 50mg tab ORAL SCH (09:00)
[2019-09-06] MEDS ORDERED: Pantoprazole Inj IV SCH (09:00)
--- NOTE | 2019-09-06 11:35 | General Progress Note ---
Assessment/Plan Problem List: (1) HTN (hypertension) ICD Codes: I10 - Essential (primary) hypertension SNOMED: 63405136 (2) GERD (gastroesophageal reflux disease) ICD Codes: K21.9 - Gastro-esophageal reflux disease without esophagitis SNOMED: 190141809 (3) Hyperlipemia ICD Codes: E78.5 - Hyperlipidemia, unspecified SNOMED: 56762154 (4) Diverticulitis ICD Codes: K57.92 - Diverticulitis of intestine, part unspecified, without perforation or abscess without bleeding SNOMED: 226726489 (5) Abdominal pain ICD Codes: R10.9 - Unspecified abdominal pain SNOMED: 75653562 Assessment/Plan: abxs follow labs consult Subjective Allergies: Coded Allergies: No Known Allergies (Unverified , 10/23/17) Subjective In NAD Objective Last 24 Hour Vital Signs Date Time Temp Pulse Resp B/P (MAP) Pulse Ox O2 Delivery O2 Flow Rate FiO2 09/06/19 09:12 75 143/73 09/06/19 09:12 75 143/73 09/06/19 09:00 Room Air 09/06/19 08:00 98.1 75 14 143/73 (96) 97 09/06/19 04:00 97.8 69 14 130/78 (95) 100 09/06/19 00:00 98.1 65 14 108/59 (75) 97 09/05/19 20:42 Room Air 09/05/19 20:00 97.8 72 16 152/71 (98) 98 09/05/19 17:48 68 20 98 09/05/19 17:30 97.4 70 18 138/62 (87) 99 09/05/19 17:10 Room Air 09/05/19 16:00 97.9 72 18 135/53 (80) 99 09/05/19 16:00 71 09/05/19 13:44 97.4 62 17 145/74 98 Room Air 09/05/19 13:35 60 19 140/70 98 Room Air 09/05/19 13:30 62 18 140/73 99 Room Air 09/05/19 13:25 59 20 143/71 100 Nasal Cannula 3 09/05/19 13:20 55 17 141/71 100 Nasal Cannula 3 09/05/19 13:20 62 20 99 1/28/20 13:15 98.5 57 14 141/72 100 Nasal Cannula 3 09/05/19 12:00 59 09/05/19 12:00 97.7 62 18 114/55 (74) 98 Intake and Output 09/05/19 09/06/19 19:00 07:00 Intake Total 860 ml 917.5 ml Output Total 0 ml 2 ml Balance 860 ml 915.5 ml Intake Oral 360 ml 480 ml IV Total 500 ml 437.5 ml Output Urine Total 2 ml Estimated Blood Loss 0 ml # Voids 1 Height (Feet): 5 Height (Inches): 5.00 Weight (Pounds): 159 Cardiovascular: normal rate Respiratory/Chest: lungs clear Abdomen: soft Lobo Quesada MD Sep 06, 2019 11:35
[2019-09-06 12:00] VITALS: BP 143/71
--- NOTE | 2019-09-06 14:56 | Surgery Progress Note ---
Surgery Progress Note Subjective Additional Comments discussed with GI. scope negative comfortable improving mild pelvic pain Objective Last 24 Hour Vital Signs Date Time Temp Pulse Resp B/P (MAP) Pulse Ox O2 Delivery O2 Flow Rate FiO2 09/06/19 12:00 97.9 67 13 143/71 (95) 97 09/06/19 09:12 75 143/73 09/06/19 09:12 75 143/73 09/06/19 09:00 Room Air 09/06/19 08:00 98.1 75 14 143/73 (96) 97 09/06/19 04:00 97.8 69 14 130/78 (95) 100 09/06/19 00:00 98.1 65 14 108/59 (75) 97 09/05/19 20:42 Room Air 09/05/19 20:00 97.8 72 16 152/71 (98) 98 09/05/19 17:48 68 20 98 09/05/19 17:30 97.4 70 18 138/62 (87) 99 09/05/19 17:10 Room Air 09/05/19 16:00 97.9 72 18 135/53 (80) 99 09/05/19 16:00 71 I&O Intake and Output 09/05/19 09/06/19 18:59 06:59 Intake Total 640 ml 1110.0 ml Output Total 0 ml 2 ml Balance 640 ml 1108.0 ml Intake Oral 240 ml 600 ml IV Total 400 ml 510.0 ml Output Urine Total 2 ml Estimated Blood Loss 0 ml # Voids 1 Cardiovascular: RSR Respiratory: clear Abdomen: soft, non-tender, present bowel sounds, non-distended Extremities: no edema, no tenderness, no cyanosis Plan Problems: (1) Abdominal pain Assessment & Plan: 64-year-old female with left lower quadrant abdominal pain and cholelithiasis. Afebrile, hemodynamically stable, labs reviewed. CT reviewed On examination patient with mild left lower quadrant abdominal pain states improved. CT reviewed gallstones without clinical correlation No acute surgical intervention indicated Okay for diet from surgical standpoint Antibiotics IV fluids GI eval - colonoscopy reviewed. no acute findings US noted gallstone likely incidental finding d/c planning outpatient urology eval thank you will follow with recs (2) Diverticulitis Assessment & Plan: 1. Mild wall thickening of the descending and sigmoid colon. This is most likely related to underdistention although cannot exclude a mild colitis. No adjacent inflammatory changes, free air, or fluid collections. 2. Cholelithiasis with a subcentimeter stone in the gallbladder neck. No gallbladder wall thickening or adjacent inflammatory stranding. No biliary ductal dilatation. 3. Scattered punctate calcified granulomas in the liver, suggesting prior granulomatous disease. Nish Franks Sep 06, 2019 14:56
[2019-09-06 16:00] VITALS: BP 142/68
--- NOTE | 2019-09-06 17:45 | Consultation ---
DATE OF CONSULTATION: 09/06/2019 CONSULTING PHYSICIAN: Quan Dhillon M.D. REASON FOR CONSULTATION: Hematuria. HISTORY OF PRESENT ILLNESS: The patient is a very pleasant [place] woman that was admitted to the hospital with abdominal pain. She underwent a CT urogram that showed normal upper tracts. However, she has gallstones. Normal urinary bladder. MEDICAL HISTORY: She has high blood pressure, hypercholesterolemia. MEDICATIONS: Reviewed. REVIEW OF SYMPTOMS: Essentially negative. No evidence of significant neurological pains. No CVA discomfort. No gross hematuria. PHYSICAL EXAMINATION: VITAL SIGNS: Afebrile. Vital signs stable. NEUROLOGICAL: Intact. LUNGS: Clear to auscultation. CARDIOVASCULAR: Regular rate and rhythm. ABDOMEN: Soft, nontender. No suprapubic tenderness. CVA is nontender. VAGINAL: Deferred. LABORATORY DATA: Reviewed. On admission, urine had 25 red cells. Currently, there is trace of red cells in the urine. Creatinine is 0.8. White count is normal. ASSESSMENT AND PLAN: The patient has history of microhematuria. Currently asymptomatic. No evidence of UTI. She will need outpatient cystoscopy, but currently she is cleared. I will be happy to follow her in the office and to do office cystoscopy and if anything biopsy. Quan Dhillon M.D. DR: PRECIOUS JOB#: [id number] CC:
--- NOTE | 2019-09-06 19:32 | General Progress Note ---
Assessment/Plan Assessment/Plan: Assessment - Hematuria w/o pyuria - (L) sided colonic wall thickening, ? significance - colonoscopy today - No diverticulitis seen on CT - cholelithiasis Recommendations - d/c planning Urology f/u Subjective Allergies: Coded Allergies: No Known Allergies (Unverified , 10/23/17) Subjective Above noted (+) BM with prep urology noted Objective Last 24 Hour Vital Signs Date Time Temp Pulse Resp B/P (MAP) Pulse Ox O2 Delivery O2 Flow Rate FiO2 09/06/19 16:00 97.4 60 16 142/68 (92) 97 09/06/19 12:00 97.9 67 13 143/71 (95) 97 09/06/19 09:12 75 143/73 09/06/19 09:12 75 143/73 09/06/19 09:00 Room Air 09/06/19 08:00 98.1 75 14 143/73 (96) 97 09/06/19 04:00 97.8 69 14 130/78 (95) 100 09/06/19 00:00 98.1 65 14 108/59 (75) 97 09/05/19 20:42 Room Air 09/05/19 20:00 97.8 72 16 152/71 (98) 98 Intake and Output 09/05/19 09/06/19 19:00 07:00 Intake Total 860 ml 917.5 ml Output Total 0 ml 2 ml Balance 860 ml 915.5 ml Intake Oral 360 ml 480 ml IV Total 500 ml 437.5 ml Output Urine Total 2 ml Estimated Blood Loss 0 ml # Voids 1 Height (Feet): 5 Height (Inches): 5.00 Weight (Pounds): 159 Objective WDWN woman NCAT supple CTA RR abd soft, Mild midline pelvic TTP no edema Owen Dong MD Sep 06, 2019 19:32
--- NOTE | 2019-09-08 23:01 | Consultation ---
DATE OF CONSULTATION: 09/06/2019 REASON FOR CONSULTATION: Microhematuria. HISTORY OF PRESENT ILLNESS: This patient was referred to me with a history of microhematuria. She was admitted with abdominal pain to the hospital. She denies gross hematuria. The abdominal pain was in the suprapubic area, migrated into the left colon. CT urogram and ultrasound was performed showing basically normal upper tracts. PAST MEDICAL HISTORY: Reviewed as well as the medication list. PHYSICAL EXAMINATION: GENERAL: She is currently . VITAL SIGNS: Stable. NEUROLOGIC: Intact. LUNGS: Clear to auscultation. CARDIOVASCULAR: Regular rate and rhythm. ABDOMEN: Soft. No CVA tenderness. No suprapubic tenderness. Urine is clear. LABORATORY DATA: Reviewed. Recent urinalysis had too numerous to count red cells. Creatinine and white count were normal. ASSESSMENT/PLAN: The patient has microhematuria of unclear etiology. No evidence of intra-abdominal processes. Normal kidneys. I discussed with her in great length and recommended that she get a cystoscopy to make sure she does not have any polyps or transitional cell in the bladder. She understands that and will follow with me as an outpatient or with the other urologist that she would prefer. She needs a cystoscopy. This was communicated to her primary care physician. Quan Dhillon M.D. DR: SYLVIA JOB#: [id number] CC:
--- NOTE | 2019-09-11 06:58 | Discharge Summary ---
Discharge Summary Discharge Summary _ DATE OF ADMISSION: 09/02/2019 DATE OF DISCHARGE: 09/06/2019 DISCHARGED BY: REASON FOR ADMISSION: 64 years old female with past medical history of hypertension, hyperlipidemia, GERD, presented with left lower quadrant abdominal pain. Pain reported to be constant. She denied nausea or vomiting. Upon evaluation in the emergency room CT scan showed gallstones as well as a possible colitis . . Patient was admitted for further management. CONSULTANTS: GI specialist Dr. Dong surgery Dr. Franks [facility] COURSE: Patient admitted to medical surgical floor. Patient started on IV fluids and was kept n.p.o Patient started on broad-spectrum antibiotic. Abdominal ultrasound demonstrated fatty liver, gallstones, small stone at the neck of the gallbladder. No hydronephrosis. CT scan of the abdomen pelvis revealed left-sided colonic wall thickening of unclear significance. No diverticulitis was seen on the CT scan as per GI specialist. Patient started on clear liquid diet with GI prep for colonoscopy. Patient subsequently undergone colonoscopy on 09/05 , due to abnormal CT scan findings, which was negative. Per surgeon , no acute surgical intervention was indicated. Patient slowly started on diet as tolerated. Urinalysis revealed hematuria without pyuria. Urology consult was requested. Renal parameters remained stable. Patient had microhematuria of unclear etiology. No evidence of intra-abdominal process . N ormal kidneys. Patient was recommended to have cystoscopy as outpatient. Patient verbalized understanding and will follow-up with urologist as outpatient for cystoscopy. Blood pressure was managed with current regimen and remained stable. GI prophylaxis provided. Pain management was addressed as needed. Bowel regimen instituted. Patient was able to tolerate diet. Abdominal pain resolved. Stool for occult blood was negative. Lipid panel revealed elevated total cholesterol, LDL and triglycerides. Patient was educated on low-fat low-cholesterol diet and was advised to consider statin. Patient clinically stabilized and was ready for discharge home. FINAL DIAGNOSES: Cholelithiasis Left sided colonic wall thickening Status post colonoscopy Microhematuria of unclear etiology Hypertension Hyperlipidemia GERD Abdominal pain DISCHARGE MEDICATIONS: See Medication Reconciliation list. DISCHARGE INSTRUCTIONS: Patient was discharged home. Patient to follow-up with urologist as outpatient for cystoscopy. I have been assigned to dictate discharge summary for this account. I was not involved in the patient's management. Helga Waldrop NP Sep 11, 2019 06:58
== END 2019-09-06 17:30 | disposition home or self-care (01) | DRG 446 ==
LOC: EMR 09:50 → 2E 12:30 → EDBEDREQ 14:08 → 4E 09-05 17:03 → 3E 09-06 06:32
PROC: 0DJD8ZZ Inspection of Lower Intestinal Tract, Via Natural or Artificial Opening Endoscopic (ICD-10-PCS; principal; 2019-09-05 12:55)
DX: K80.20 Calculus of gallbladder without cholecystitis without obstruction (principal); I10 Essential (primary) hypertension; E78.5 Hyperlipidemia, unspecified; K21.9 Gastro-esophageal reflux disease without esophagitis; R31.29 Other microscopic hematuria; K63.89 Other specified diseases of intestine
CPT/HCPCS: 36415; 74176; 76700; 80053; 80061; 81001; 81003; 82270; 83036; 83690; 83735; 84443; 84484; 85025; 85610; 85730; 87045; 87324; 94003; 94150; 96374; 96375; 96376; 99285; J2250; J2405